=== PATIENT | female | born 1970 | race Hispanic/Latino ===

== ENCOUNTER 2017-03-09 17:03 | Emergency (ER) | payer MEDICAID, MEDICARE, OTHER ==
[2017-03-09 17:04] VITALS: BMI 49.4
[2017-03-09 17:10] VITALS: BP 121/70; PULSE 84; RESP 18; TEMP 98.4; O2SAT 97
[2017-03-09] MEDS ORDERED: Albuterol-Ipratrop 3 mg / 0.5 (3 ml) UD INH STA (17:50)
[2017-03-09] MEDS ORDERED: Albuterol-Ipratrop 3 mg / 0.5 (3 ml) UD ONE (18:04)
--- NOTE | 2017-03-09 18:43 | ED PDOC ---
HPI: CCC, URI, Sore Throat Time Seen by Provider: 03/09/17 17:41 Chief Complaint (Nursing): Cough, Cold, Congestion Chief Complaint (Provider): Cough History Per: Patient History/Exam Limitations: no limitations Have you had recent travel within the past 21 days to any of the following countries: [place], [place], [place] or [place]?: No Onset/Duration Of Symptoms: Days (x1) Current Symptoms Are (Timing): Still Present Sick Contacts (Context): None Associated Symptoms: Cough, Other (chest tightness, wheezing; no hemoptysis). denies: Fever Severity: Moderate Additional Complaint(s): Monica Resendiz is a 46 year old female, with a past medical history inclusive of asthma and bronchitis, who presents to the ED on 03/09/17 for the evaluation of a moderate cough that she has experienced x1 day. Some associated wheezing and chest tightness also reported, though she denies fever, hemoptysis, known sick contacts or recent travel. Has medicated with her usual ventolin inhaler without relief. PMD: Han Friedman Past Medical History Reviewed: Historical Data, Nursing Documentation, Vital Signs Vital Signs: Last Vital Signs Temp 98.4 F 03/09/17 17:05 Pulse 84 03/09/17 17:05 Resp 18 03/09/17 17:05 BP 121/70 03/09/17 17:05 Pulse Ox 97 03/09/17 18:45 - Medical History PMH: Anxiety, Asthma, Bronchitis, Depression, Gastritis - Surgical History Surgical History: Endoscopy, Hernia Repair (ventral and inguinal x2), (x3) Other surgeries: tubal ligation - Family History Family History: States: Unknown Family Hx - Home Medications Home Medications: Ambulatory Orders Medication Instructions Recorded Albuterol Sulfate [Proair Hfa] 0.09 mg IH DAILY 10/21/15 Brimonidine 0.2% [Alphagan 0.2% 1 drop BOTHEYES DAILY 10/21/15 Opht] Escitalopram [Lexapro] 20 mg PO DAILY 10/21/15 Fluticasone/Salmeterol 250/50 1 dsk IH DAILY 10/21/15 [Advair Diskus] Loratadine 10 mg PO DAILY 10/21/15 Multivit,Iron,Min 5/Folic Acid 1 tab PO DAILY 10/21/15 [Strovite Forte] Naproxen 500 mg PO DAILY PRN 10/21/15 Ciprofloxacin Hydrochloride 3 drop .ROUTE BID #5 ml 11/17/15 [Ciprofloxacin 5 ml] hydrOXYzine HCl [Atarax] 25 mg PO HS 12/09/15 Cephalexin [Keflex] 500 mg PO TID #21 tab 01/25/16 traMADol [Ultram] 50 mg PO TID PRN #12 tab 01/25/16 Azithromycin [Zithromax Z-Jefe] 250 mg PO DAILY #1 packet 05/15/16 Fluticasone Nasal [Flonase] 1 spray NS DAILY #0 spr 05/15/16 Ibuprofen [Motrin] 600 mg PO Q6 PRN #15 tab 05/15/16 Tramadol HCl [Ultram] 50 mg PO Q6 #15 tab 05/16/16 Albuterol 0.083% [Albuterol 0.083% 3 ml IH Q4 PRN #50 neb 03/09/17 Inhal Dominique (2.5 mg/3 ml) UD] Benzonatate [Tessalon Perle] 100 mg PO Q8 PRN #30 capsule 03/09/17 Methylprednisolone [Medrol Dose 4 mg PO DAILY #21 mg 03/09/17 Pack (21 tabs)] Nebulizer [Aeroeclipse] 1 each MC Q4 PRN #1 each 03/09/17 - Allergies Allergies/Adverse Reactions: Allergies Allergy/AdvReac Type Severity Reaction Status Date / Time iodine Allergy RASH Verified 08/02/16 11:46 shellfish derived Allergy RASH Verified 08/02/16 11:46 Review of Systems Constitutional: Negative for: Fever Respiratory: Positive for: Cough, Wheezing, Other (chest tightness). Negative for: Hemoptysis Physical Exam - Reviewed Nursing Documentation Reviewed: Yes Vital Signs Reviewed: Yes - Physical Exam Appears: Positive for: Non-toxic, No Acute Distress Head Exam: Positive for: ATRAUMATIC, NORMOCEPHALIC Skin: Positive for: Normal Color, Warm, Dry Eye Exam: Positive for: Normal appearance, PERRL ENT: Positive for: Normal ENT Inspection. Negative for: Pharyngeal Erythema, Tonsillar Exudate, Tonsillar Swelling Cardiovascular/Chest: Positive for: Regular Rate, Rhythm. Negative for: Murmur Respiratory: Positive for: Wheezing (b/l expiratory). Negative for: Rales, Rhonchi, Respiratory Distress Gastrointestinal/Abdominal: Positive for: Normal Exam, Soft. Negative for: Tenderness Back: Positive for: Normal Inspection Extremity: Positive for: Normal ROM. Negative for: Swelling Neurologic/Psych: Positive for: Alert, Oriented - ECG O2 Sat by Pulse Oximetry: 97 (RA) Pulse Ox Interpretation: Normal Medical Decision Making Medical Decision Makin:41 Initial Impression: cough, wheezing, chest tightness in the setting of known asthma/previous bronchitis Initial Plan: * CXR (PA/LAT) * Prednisone 60mg PO * Duonebs 9ml INH * Peak Flow Pre/Post Treatment * Reevaluation Scribe Attestation: Documented by Floridalma Howe, acting as a scribe for Ibrahima Olivier Provider Scribe Attestation: All medical record entries made by the Scribe were at my direction and personally dictated by me. I have reviewed the chart and agree that the record accurately reflects my personal performance of the history, physical exam, medical decision making, and the department course for this patient. I have also personally directed, reviewed, and agree with the discharge instructions and disposition. Disposition - Clinical Impression Clinical Impression: Acute bronchitis - Patient ED Disposition Is Patient to be Admitted: No - Disposition Disposition: Routine/Home Disposition Time: 19:55 Condition: STABLE Prescriptions: Albuterol 0.083% [Albuterol 0.083% Inhal Dominique (2.5 mg/3 ml) UD] 3 ml IH Q4 PRN # 50 neb PRN Reason: Wheezing Benzonatate [Tessalon Perle] 100 mg PO Q8 PRN #30 capsule PRN Reason: Cough Methylprednisolone [Medrol Dose Pack (21 tabs)] 4 mg PO DAILY #21 mg Nebulizer [Aeroeclipse] 1 each MC Q4 PRN #1 each PRN Reason: Wheezing Instructions: Acute Bronchitis (ED)
--- NOTE | 2017-03-10 06:43 | RAD ---
HISTORY: cough COMPARISON: No prior. TECHNIQUE: Chest PA and lateral FINDINGS: LUNGS: No active pulmonary disease. PLEURA: No significant pleural effusion identified. No pneumothorax apparent. CARDIOVASCULAR: Normal. OSSEOUS STRUCTURES: No significant abnormalities. VISUALIZED UPPER ABDOMEN: Normal. OTHER FINDINGS: None. IMPRESSION: No active disease.
== END 2017-03-09 20:00 | disposition home or self-care (01) ==
LOC: H.ER 17:03
DX: J20.9 Acute bronchitis, unspecified (principal); R05 Cough; R07.89 Other chest pain; J45.909 Unspecified asthma, uncomplicated; J02.9 Acute pharyngitis, unspecified; F41.9 Anxiety disorder, unspecified; F32.9 Major depressive disorder, single episode, unspecified

== ENCOUNTER 2017-03-18 19:02 | Emergency (ER) | payer MEDICAID ==
[2017-03-18 19:02] VITALS: BMI 49.4
[2017-03-18 19:07] VITALS: BP 99/51; PULSE 72; RESP 20; TEMP 98.3; O2SAT 98
--- NOTE | 2017-03-18 19:50 | ED PDOC ---
HPI: Abdomen Time Seen by Provider: 03/18/17 19:14 Chief Complaint (Nursing): Abdominal Pain Additional History Per: Patient Additional Complaint(s): 46F p/w RIGHT flank pain, sharp, non-radiating, constant since today, but started yesterday evening. She reports pain worse when lying on right side, otherwise no alleviating factors -ve: fever, nausea, cough, SOB, chest pain, palpitations, vomiting, diarrhea, constipation, urinary frequency/burning, vaginal discharge, difficulty walking +ve: "cold" last week, chills PMD: Han Friedman PMH: Bronchitis, Depression, Glaucoma, Overactive Bladder PSH: Ventral Hernia Repair Smoke: Yes etOH: Occasional Drugs: Denies Allergies: Shellfish (Anaphylaxis), Topical Iodine (Rash) LMP: 01/30/2017 Abnormal Vaginal Bleeding: No Last Menstral Period: 01/30/2017 Past Medical History Vital Signs: Last Vital Signs Temp 36.8 C 03/18/17 19:04 Pulse 72 03/18/17 19:04 Resp 20 03/18/17 19:04 BP 99/51 L 03/18/17 19:04 Pulse Ox 98 03/18/17 23:58 - Medical History PMH: Anxiety, Asthma, Bronchitis, Depression, Gastritis - Surgical History Surgical History: Endoscopy, Hernia Repair (ventral and inguinal x2), (x3) - Family History Family History: States: Unknown Family Hx - Home Medications Home Medications: Ambulatory Orders Medication Instructions Recorded Albuterol Sulfate [Proair Hfa] 0.09 mg IH DAILY 10/21/15 Brimonidine 0.2% [Alphagan 0.2% 1 drop BOTHEYES DAILY 10/21/15 Opht] Escitalopram [Lexapro] 20 mg PO DAILY 10/21/15 Fluticasone/Salmeterol 250/50 1 dsk IH DAILY 10/21/15 [Advair Diskus] Loratadine 10 mg PO DAILY 10/21/15 Multivit,Iron,Min 5/Folic Acid 1 tab PO DAILY 10/21/15 [Strovite Forte] Naproxen 500 mg PO DAILY PRN 10/21/15 Ciprofloxacin Hydrochloride 3 drop .ROUTE BID #5 ml 11/17/15 [Ciprofloxacin 5 ml] hydrOXYzine HCl [Atarax] 25 mg PO HS 12/09/15 Cephalexin [Keflex] 500 mg PO TID #21 tab 01/25/16 traMADol [Ultram] 50 mg PO TID PRN #12 tab 01/25/16 Azithromycin [Zithromax Z-Jefe] 250 mg PO DAILY #1 packet 05/15/16 Fluticasone Nasal [Flonase] 1 spray NS DAILY #0 spr 05/15/16 Ibuprofen [Motrin] 600 mg PO Q6 PRN #15 tab 05/15/16 Tramadol HCl [Ultram] 50 mg PO Q6 #15 tab 05/16/16 Albuterol 0.083% [Albuterol 0.083% 3 ml IH Q4 PRN #50 neb 03/09/17 Inhal Dominique (2.5 mg/3 ml) UD] Benzonatate [Tessalon Perle] 100 mg PO Q8 PRN #30 capsule 03/09/17 Methylprednisolone [Medrol Dose 4 mg PO DAILY #21 mg 03/09/17 Pack (21 tabs)] Nebulizer [Aeroeclipse] 1 each MC Q4 PRN #1 each 03/09/17 - Allergies Allergies/Adverse Reactions: Allergies Allergy/AdvReac Type Severity Reaction Status Date / Time iodine Allergy RASH Verified 03/18/17 19:04 shellfish derived Allergy RASH Verified 03/18/17 19:04 Review of Systems ROS Statement: Except As Marked, All Systems Reviewed And Found Negative Constitutional: Positive for: Chills Physical Exam - Physical Exam Appears: Positive for: Well, Non-toxic, No Acute Distress Head Exam: Positive for: ATRAUMATIC, NORMAL INSPECTION (Thinning hair) Eye Exam: Positive for: EOMI, PERRL ENT: Positive for: Pharynx Is (Clear) Neck: Positive for: Supple Cardiovascular/Chest: Positive for: Regular Rate, Rhythm, Chest Non Tender. Negative for: JVD Respiratory: Positive for: Normal Breath Sounds. Negative for: Crackles, Rales , Rhonchi, Wheezing, Respiratory Distress Gastrointestinal/Abdominal: Positive for: Bowel Sounds, Soft (Obese), Tenderness (along RIGHT rib border ). Negative for: Guarding, Rebound Back: Negative for: L CVA Tenderness, R CVA Tenderness Neurologic/Psych: Positive for: Alert - Laboratory Results Result Diagrams: 03/18/17 20:00 03/18/17 20:00 Interpretation Of Abn Labs: Potassium: 5.2 due to hemolysis, BUN slightly elevated may be secondary to home medications vs. minimal volume depletion Urine POC: Negative Urine dip results: Negative for: Leukocyte Esterase, Blood, Nitrate - ECG O2 Sat by Pulse Oximetry: 98 Medical Decision Making Medical Decision MakinF with RIGHT flank/rib/UQ pain, will evaluate for biliary etiology vs. UTI vs. MSK - CXR - CBC, CMP, Lipase, Urine Dip, Urine Preg - GB Ultrasound Upreg: Negative Urine Dip: WNL 2000 CBC: no anemia or leukocytosis CMP: hemolyzed sample, trace elevation AST and BUN Lipase: WNL CXR 2-view Unchanged when compared to 03/09/17 Ultrasound NO acute GB/Liver findings Disposition - Clinical Impression Clinical Impression: Costochondritis - Patient ED Disposition Is Patient to be Admitted: No Counseled Patient/Family Regarding: Studies Performed, Diagnosis - Disposition Referrals: Han Friedman MD [Family Provider] - Disposition: Routine/Home Disposition Time: 00:03 Condition: GOOD
[2017-03-18 20:07] LABS: BASO % 0.4 % (0.0-2.0); EOS # 0.1 K/uL (0.0-0.7); EOS % 1.1 % (0.0-4.0); LYMPH # 3.5 K/uL (1.0-4.3); LYMPH % 35.9 % (20.0-40.0); MEAN CELL VOLUME 78.7 fl (81.0-99.0); MEAN CORPUSCULAR HEMOGLOBIN 25.4 pg (27.0-31.0); MEAN CORPUSCULAR HGB CONC 32.3 g/dL (33.0-37.0); MEAN PLATELET VOLUME 7.7 fl (7.2-11.7); MONO # 0.6 K/uL (0.0-0.8); MONO % 6.5 % (0.0-10.0); NEUT # 5.4 K/uL (1.8-7.0); NEUT % 56.1 % (50.0-75.0); NRBC % 0.1 % (0.0-0.0); RED CELL DISTRIBUTION WIDTH 15.9 % (11.5-14.5); WHITE BLOOD COUNT 9.6 K/uL (4.8-10.8)
[2017-03-18 20:08] LABS: RBC URINE 2 /hpf (0-3); URINE BACTERIA RARE (<OCC); URINE BILIRUBIN NEGATIVE (NEGATIVE); URINE BLOOD SMALL (NEGATIVE); URINE COLOR YELLOW (YELLOW); URINE GLUCOSE (UA) NEG (Normal); URINE KETONE NEGATIVE (NEGATIVE); URINE LEUKOCYTE ESTERASE NEG Leu/uL (Negative); URINE PROTEIN NEGATIVE (NEGATIVE); URINE UROBILINOGEN 0.2-1.0 mg/dL (0.2-1.0); WBC URINE 1 /hpf (0-5)
[2017-03-18 20:13] LABS: ALKALINE PHOSPHATASE 84 U/L (38-126); ALT/SGPT 32 U/L (9-52); AST/SGOT 39 U/L (14-36); BILIRUBIN,TOTAL 0.8 mg/dl (0.2-1.3); BLOOD UREA NITROGEN 22 mg/dl (7-17); CALCIUM 9.6 mg/dL (8.4-10.2); CARBON DIOXIDE 27 mmol/L (22-30); CHLORIDE 101 mmol/L (98-107); GFR AFRICAN-AMERICAN > 60; GLUCOSE,RANDOM 99 mg/dL (65-105); LIPASE 163 U/L (23-300); SODIUM 138 mmol/l (132-148); TOTAL PROTEIN 7.7 G/DL (6.3-8.2)
[2017-03-18 20:14] LABS: POTASSIUM 5.2 MMOL/L (3.6-5.0)
--- NOTE | 2017-03-18 23:39 | US ---
EXAM: US Abdomen Limited, Right Upper Quadrant CLINICAL HISTORY: 46 years old, female; Pain; Abdominal pain; Colic; Patient HX: Hernia surg middle abd last yr; Additional info: Ruq TECHNIQUE: Real-time ultrasound of the right upper quadrant with image documentation. COMPARISON: No relevant prior studies available. FINDINGS: Liver: Normal echogenicity. No mass. No intrahepatic bile duct dilatation. Gallbladder: Contracted. No gallstones. No wall thickening. No pericholecystic fluid. No sonographic Parekh's sign. Common bile duct: No dilatation. No stones. Pancreas: Unremarkable as visualized. Right kidney: Normal echogenicity. No hydronephrosis. IMPRESSION: 1.No acute findings. 2.Non-acute findings are described above.
--- NOTE | 2017-03-19 10:22 | RAD ---
HISTORY: RUQ Pain COMPARISON: Chest x-ray performed 03/09/17 TECHNIQUE: Chest PA and lateral FINDINGS: Examination limited by habitus. LUNGS: No focal consolidation. Please note that chest x-ray has limited sensitivity for the detection of pulmonary masses. PLEURA: No significant pleural effusion identified. No definite pneumothorax . CARDIOVASCULAR: Heart size appears within normal limits. OSSEOUS STRUCTURES: Degenerative changes of the spine. VISUALIZED UPPER ABDOMEN: Unremarkable. OTHER FINDINGS: None. IMPRESSION: No focal consolidation, significant pleural effusion, or definite pneumothorax identified.
== END 2017-03-19 00:15 | disposition home or self-care (01) ==
LOC: H.ER 19:02
DX: R10.11 Right upper quadrant pain (principal); M94.0 Chondrocostal junction syndrome [Tietze]; F41.9 Anxiety disorder, unspecified; J45.909 Unspecified asthma, uncomplicated; N32.81 Overactive bladder; F32.9 Major depressive disorder, single episode, unspecified

== ENCOUNTER 2017-04-22 14:35 | Inpatient (IN) | payer MEDICAID, MEDICARE, OTHER ==
[2017-04-22 14:35] VITALS: BMI 49.4
[2017-04-22] MEDS ORDERED: Barium Sulfate Susp 2.1% w/v, 2.0% w/w 450 mL Bottle PO ONE ×3 (15:15)
[2017-04-22] MEDS ORDERED: Sodium Chloride 0.9% 1,000 ML IV STA (15:17)
--- NOTE | 2017-04-22 15:37 | ED PDOC ---
HPI: Abdomen Time Seen by Provider: 04/22/17 15:08 Chief Complaint (Nursing): Abdominal Pain Chief Complaint (Provider): Abdominal pain History Per: Patient History/Exam Limitations: no limitations Onset/Duration Of Symptoms: Days (1) Outside of [place] travel?: No Current Symptoms Are (Timing): Still Present Severity: Moderate Location Of Pain/Discomfort: Epigastric Quality Of Discomfort: "Pain" Associated Symptoms: Chills, Nausea. denies: Fever, Vomiting Additional History Per: Patient Additional Complaint(s): The pt is a 46yo female, PMHx of 4x hernias, 3x , depression, asthma, obesity, presents to the ED for evaluation of mid-upper abdominal pain starting since 8AM yesterday. Pt reports the pain has been constant, waxing and waning but was worse today, prompting her visit. Pt reports she was able to eat today. She reports taking Tylenol with no relief. Pt reports associated chills and nausea. She denies any fever, vomiting, diarrhea, constipation, black or bloody stool, and urinary symptoms. Pt reports she is concerned her symptoms indicate another hernia. At present, pt offers no other medical complaints. PCP: Dr. Han Friedman Past Medical History Reviewed: Historical Data, Nursing Documentation, Vital Signs Vital Signs: Last Vital Signs Temp 98 F 04/22/17 21:42 Pulse 79 04/22/17 21:42 Resp 19 04/22/17 21:42 BP 126/76 04/22/17 21:42 Pulse Ox 100 04/22/17 21:42 - Medical History PMH: Anxiety, Asthma, Bronchitis, Depression, Gastritis - Surgical History Surgical History: Endoscopy, Hernia Repair (ventral and inguinal x2), (x3) - Family History Family History: States: Unknown Family Hx, Hypertension - Social History Current smoker - smoking cessation education provided: Yes - Home Medications Home Medications: Ambulatory Orders Medication Instructions Recorded Loratadine 10 mg PO DAILY 10/21/15 hydrOXYzine HCl [Atarax] 25 mg PO HS 12/09/15 Escitalopram [Lexapro] 1 tab PO DAILY 04/22/17 - Allergies Allergies/Adverse Reactions: Allergies Allergy/AdvReac Type Severity Reaction Status Date / Time iodine Allergy RASH Verified 04/22/17 14:38 shellfish derived Allergy RASH Verified 04/22/17 14:38 Review of Systems ROS Statement: Except As Marked, All Systems Reviewed And Found Negative Constitutional: Positive for: Chills. Negative for: Fever Gastrointestinal: Positive for: Nausea, Abdominal Pain. Negative for: Vomiting , Diarrhea, Constipation, Melena, Hematochezia Genitourinary Female: Negative for: Dysuria Physical Exam - Reviewed Nursing Documentation Reviewed: Yes Vital Signs Reviewed: Yes - Physical Exam Appears: Positive for: Well, Non-toxic, No Acute Distress Head Exam: Positive for: ATRAUMATIC, NORMAL INSPECTION, NORMOCEPHALIC Skin: Positive for: Normal Color, Warm Neck: Positive for: Normal, Supple Cardiovascular/Chest: Positive for: Regular Rate, Rhythm Respiratory: Negative for: Respiratory Distress Gastrointestinal/Abdominal: Positive for: Soft, Tenderness (epigastric, left upper quadrant and left lower quadrant tenderness noted; (-) McBurney's point tenderness (-) Parekh's sign), Other (Abdomen is obese and protuberant). Negative for: Mass, Guarding, Rebound Neurologic/Psych: Positive for: Alert, Oriented - Laboratory Results Result Diagrams: 04/22/17 15:49 04/22/17 15:49 - ECG O2 Sat by Pulse Oximetry: 100 (RA) Pulse Ox Interpretation: Normal Medical Decision Making Medical Decision Making: Time: 1520 Impression: Abdominal pain Differential: Hernia, gastritis, pancreatitis, colitis Plan: * CT AP w/ PO contrast * Bloodwork * IV Fluids * Pepcid 40 mg IVP * Toradol 30 mg IV * Zofran 8 mg IV Scribe Attestation: Documented by Jacque Holguin acting as a scribe for Estephania Lopez MD. Provider Attestation: All medical record entries made by the Scribe were at my direction and personally dictated by me. I have reviewed the chart and agree that the record accurately reflects my personal performance of the history, physical exam, medical decision making, and the department course for this patient. I have also personally directed, reviewed, and agree with the discharge instructions and disposition. ED OBSERVATION Time of observation admission: 15:15 - Observation admission statement Patient is being placed in observation because:: Time intensive workup and serial exams - Goals of Observation Goals of observation are:: Complete diagnostics and initiate definitive care. - Progress Note Progress Note: 17:00 Pt's labs unremarable. Pending CT. Pt's pain controlled at this time. 04/22/17 18:53 EXAM: CT Abdomen and Pelvis With Intravenous Contrast CLINICAL HISTORY: 46 years old, female; Pain; Abdominal pain; Other: Upper mid and left side; Additional info: Abd pain h/o multiple surgeries TECHNIQUE: Axial computed tomography images of the abdomen and pelvis with intravenous contrast. This CT exam was performed using one or more of the following dose reduction techniques : automated exposure control, adjustment of the mA and/or kV according to patient size, and/ or use of iterative reconstruction technique. CONTRAST: 50 mL of [id number] administered intravenously. COMPARISON: US - ABDOMEN LIMITED (GB INCLUDED) 03/18/2017 11:01:30 PM FINDINGS: Lower thorax: No acute findings. ABDOMEN: Liver: Unremarkable. No mass. Gallbladder and bile ducts: Unremarkable. No calcified stones. No ductal dilation. Pancreas: Unremarkable. No mass. No ductal dilation. Spleen: Unremarkable. No splenomegaly. Adrenals: Unremarkable. No mass. Kidneys and ureters: Unremarkable. No solid mass. No hydronephrosis. Stomach and bowel: There is a 7.1 x 2.8 x 11.0 cm thick walled air containing fluid collection immediately deep to the anterior abdominal wall in the supraumbilical region. There is no evidence of communication with large or small bowel. There are multiple loops of small bowel abutting the collection, however the large and small bowel are unremarkable Appendix: No findings to suggest acute appendicitis. PELVIS: Bladder: Unremarkable. No mass. Reproductive: Unremarkable as visualized. ABDOMEN and PELVIS: Intraperitoneal space: Unremarkable. No free air. No significant fluid collection. Bones/joints: No acute fracture. No dislocation. Soft tissues: See above. Vasculature: Unremarkable. No abdominal aortic aneurysm. Lymph nodes: Unremarkable. No enlarged lymph nodes. IMPRESSION: Anterior abdominal wall thick wall collection containing air suspicious for abscess. No fistula with intestine was demonstrated. Thank you for allowing us to participate in the care of your patient. Dictated and Authenticated by: Monica Cornejo MD 04/22/2017 6:43 PM Eastern Time ([place] & [place]) 830p Unable to reach Dr Hameed pt's surgeon. [facility] and Dr Roy Hospitalist for admission. Disposition - Clinical Impression Clinical Impression: Abdominal abscess - Disposition Disposition Time: 15:15 Condition: GUARDED - Pt Status Changed To: Hospital Disposition Of: Inpatient - Admit Certification Admit to Inpatient:: After my assessment, the patient will require hospitalization for at least two midnights. This is because of the severity of symptoms shown, intensity of services needed, and/or the medical risk in this patient being treated as an outpatient. - POA Present On Arrival: None
[2017-04-22 16:02] LABS: BASO % 0.4 % (0.0-2.0); EOS # 0.1 K/uL (0.0-0.7); EOS % 1.1 % (0.0-4.0); HEMATOCRIT 38.1 % (34.0-47.0); LYMPH # 1.9 K/uL (1.0-4.3); LYMPH % 17.7 % (20.0-40.0); MEAN CELL VOLUME 79.2 fl (81.0-99.0); MEAN CORPUSCULAR HEMOGLOBIN 25.7 pg (27.0-31.0); MEAN CORPUSCULAR HGB CONC 32.4 g/dL (33.0-37.0); MEAN PLATELET VOLUME 8.7 fl (7.2-11.7); MONO # 0.9 K/uL (0.0-0.8); MONO % 8.6 % (0.0-10.0); NEUT # 7.8 K/uL (1.8-7.0); NEUT % 72.2 % (50.0-75.0); RED CELL DISTRIBUTION WIDTH 14.8 % (11.5-14.5); WHITE BLOOD COUNT 10.8 K/uL (4.8-10.8)
[2017-04-22 16:14] LABS: ALB/GLOB RATIO 1.2 (1.0-2.1); ALCOHOL SERUM < 10 mg/dl (0-10); ALKALINE PHOSPHATASE 81 U/L (38-126); ALT/SGPT 30 U/L (9-52); AST/SGOT 27 U/L (14-36); BILIRUBIN,TOTAL 0.2 mg/dl (0.2-1.3); BLOOD UREA NITROGEN 17 mg/dl (7-17); CALCIUM 9.3 mg/dL (8.4-10.2); CARBON DIOXIDE 27 mmol/L (22-30); CHLORIDE 101 mmol/L (98-107); GFR AFRICAN-AMERICAN > 60; GLUCOSE,RANDOM 104 mg/dL (65-105); LIPASE 81 U/L (23-300); POTASSIUM 3.8 MMOL/L (3.6-5.0); SODIUM 142 mmol/l (132-148); TOTAL PROTEIN 7.8 G/DL (6.3-8.2)
[2017-04-22 16:34] LABS: PARTIAL THROMBOPLASTIN TIME 46.1 Seconds (25.6-37.1)
--- NOTE | 2017-04-22 20:57 | CP.PCM.HP ---
History of Present Illness - History of Present Illness History of Present Illness: CC: Abd pain HPI: This is a 46 y/o female with MHx significant for asthma and for multiple hernia surgeries with implanted mesh (done at [facility]). She comes in with worsening abd pain since yesterday AM. Pain is localized to L abdomen it appears. It is waxing/waning. Nothing seems to make it better or worse. Patient not able to eat much today. No f, but some chills. No v/d. No dysuria. ROS: 14 systems reviewed, negative other than HPI MHx: Asthma SHx: Hernia repair (ventral and inguinal x 2 each) with mesh, C-sec x 3, tubal ligation Allergies: iodinated dyes Medications: As per med rec Family Hx: reviewed, no relevant findings Social Hx: Lives with family, no significant EtOH, no tobacco Present on Admission - Present on Admission Any Indicators Present on Admission: No Past Patient History - Past Medical History & Family History Past Medical History?: Yes - Past Social History Smoking Status: Light Smoker < 10 Cigarettes Daily - CARDIAC Hx Cardiac Disorders: No - PULMONARY Hx Asthma: Yes Hx Bronchitis: Yes - NEUROLOGICAL Hx Neurological Disorder: No - HEENT Hx HEENT Problems: Yes Hx Glaucoma: Yes - ENDOCRINE/METABOLIC Hx Endocrine Disorders: No - HEMATOLOGICAL/ONCOLOGICAL Hx Blood Disorders: No - INTEGUMENTARY Hx Dermatological Problems: No - MUSCULOSKELETAL/RHEUMATOLOGICAL Hx Musculoskeletal Disorders: No - GASTROINTESTINAL Hx Gastritis: Yes - GENITOURINARY/GYNECOLOGICAL Other/Comment: Hx overactive bladder - PSYCHIATRIC Hx Anxiety: Yes Hx Depression: Yes - SURGICAL HISTORY Hx Surgeries: Yes Hx Tubal Ligation: Yes - ANESTHESIA Hx Anesthesia: Yes Hx Anesthesia Reactions: No Meds Allergies/Adverse Reactions: Allergies Allergy/AdvReac Type Severity Reaction Status Date / Time iodine Allergy RASH Verified 04/22/17 14:38 shellfish derived Allergy RASH Verified 04/22/17 14:38 Physical Exam - Constitutional Appears: No Acute Distress - Head Exam Head Exam: ATRAUMATIC, NORMOCEPHALIC - Eye Exam Eye Exam: EOMI, PERRL - ENT Exam ENT Exam: Mucous Membranes Moist - Neck Exam Neck exam: Positive for: Full Rom - Respiratory Exam Respiratory Exam: Clear to Auscultation Bilateral, NORMAL BREATHING PATTERN - Cardiovascular Exam Cardiovascular Exam: REGULAR RHYTHM, +S1, +S2 - GI/Abdominal Exam GI & Abdominal Exam: Normal Bowel Sounds, Soft, Tenderness Additional comments: TTP localized mostly to L abdomen/LUQ. no rigidity, guarding, rebound - Extremities Exam Extremities exam: Positive for: full ROM, normal inspection - Neurological Exam Neurological exam: Alert, CN II-XII Intact, Oriented x3 - Psychiatric Exam Psychiatric exam: Normal Affect, Normal Mood - Skin Skin Exam: Dry, Warm Results - Vital Signs Recent Vital Signs: Last Vital Signs Temp 98.1 F 04/22/17 14:39 Pulse 101 H 04/22/17 14:39 Resp 18 04/22/17 14:39 BP 106/67 04/22/17 14:39 Pulse Ox 100 04/22/17 18:54 - Labs Result Diagrams: 04/22/17 15:49 04/22/17 15:49 Labs: Laboratory Results - last 24 hr 04/22/17 04/22/17 04/22/17 15:49 15:49 15:49 WBC 10.8 RBC 4.81 Hgb 12.3 Hct 38.1 MCV 79.2 L MCH 25.7 L MCHC 32.4 L RDW 14.8 H Plt Count 260 MPV 8.7 Neut % (Auto) 72.2 Lymph % (Auto) 17.7 L [place] % (Auto) 8.6 Eos % (Auto) 1.1 Baso % (Auto) 0.4 Neut # 7.8 H Lymph # 1.9 [place] # 0.9 H Eos # 0.1 Baso # 0.0 PT INR APTT Sodium 142 Potassium 3.8 Chloride 101 Carbon Dioxide 27 Anion Gap 17 BUN 17 Creatinine 0.7 Est GFR ( Amer) > 60 Est GFR (Non-Af Amer) > 60 Random Glucose 104 Lactic Acid 2.4 H Calcium 9.3 Total Bilirubin 0.2 AST 27 ALT 30 Alkaline Phosphatase 81 Lactate Dehydrogenase 469 Total Protein 7.8 Albumin 4.3 Globulin 3.5 Albumin/Globulin Ratio 1.2 Lipase 81 Urine Opiates Screen Urine Methadone Screen Ur Barbiturates Screen Ur Phencyclidine Scrn Ur Amphetamines Screen U Benzodiazepines Scrn U Oth Cocaine Metabols U Cannabinoids Screen Alcohol, Quantitative < 10 04/22/17 04/22/17 15:49 16:29 WBC RBC Hgb Hct MCV MCH MCHC RDW Plt Count MPV Neut % (Auto) Lymph % (Auto) [place] % (Auto) Eos % (Auto) Baso % (Auto) Neut # Lymph # Benson # Eos # Baso # PT 12.8 INR 1.1 APTT 46.1 H Sodium Potassium Chloride Carbon Dioxide Anion Gap BUN Creatinine Est GFR ( Amer) Est GFR (Non-Af Amer) Random Glucose Lactic Acid Calcium Total Bilirubin AST ALT Alkaline Phosphatase Lactate Dehydrogenase Total Protein Albumin Globulin Albumin/Globulin Ratio Lipase Urine Opiates Screen Negative Urine Methadone Screen Negative Ur Barbiturates Screen Negative Ur Phencyclidine Scrn Negative Ur Amphetamines Screen Negative U Benzodiazepines Scrn Negative U Oth Cocaine Metabols Negative U Cannabinoids Screen Negative Alcohol, Quantitative - Imaging and Cardiology CT scan - abdomen Status: Report reviewed by me (IMPRESSION:) Assessment & Plan (1) Abdominal abscess Assessment and Plan: 46 y/o female with multiple abd surgeries with implanted mesh who comes in with abdominal pain and likely abscess. 1) Abd abscess -NPO, IVF -Surgery consult (Hosea rausch aware) -- Will likely recommend IR drainage -Continue vanco and zosyn IV -Pain mgmt per pain scale 2) Asthma -- continue PRN duonebs and home inh 3) DVT PPx -- scds Status: Acute (2) DVT prophylaxis Status: Acute
[2017-04-22] MEDS ORDERED: Albuterol-Ipratrop 3 mg / 0.5 (3 ml) UD INH PRN (20:59)
[2017-04-22] MEDS ORDERED: Piperacillin/Tazobact 3.375 gm Inj IVPB ONE (21:38)
--- NOTE | 2017-04-22 21:44 | CP.PCM.CON ---
<Carlos Eduardo Chanel - Last Filed: 04/22/17 22:10> History of Present Illness - History of Present Illness History of Present Illness: SURGERY CONSULT NOTE FOR DR. JC 46F presents with supraumbilical abdominal pain that started yesterday. Patient states the pain is worse with palpation, and is not associated with PO intake. The pain is note associated with nausea/vomiting/fevers/chills. She states she had a ventral hernia repair with mesh in September in [facility] [place]. She states she has not had any problems with it till now. PMH: Asthma, Glaucoma, Depression PSH: Inguinal hernia repair 2002, Ventral hernia repair September 2016, C- section x 3 Social: admits to tobacco, denies alcohol and illicit drugs Allergies: Iodine, shellfish Past Patient History - Past Medical History & Family History Past Medical History?: Yes - Past Social History Smoking Status: Light Smoker < 10 Cigarettes Daily - CARDIAC Hx Cardiac Disorders: No - PULMONARY Hx Asthma: Yes Hx Bronchitis: Yes - NEUROLOGICAL Hx Neurological Disorder: No - HEENT Hx HEENT Problems: Yes Hx Glaucoma: Yes - ENDOCRINE/METABOLIC Hx Endocrine Disorders: No - HEMATOLOGICAL/ONCOLOGICAL Hx Blood Disorders: No - INTEGUMENTARY Hx Dermatological Problems: No - MUSCULOSKELETAL/RHEUMATOLOGICAL Hx Musculoskeletal Disorders: No - GASTROINTESTINAL Hx Gastritis: Yes - GENITOURINARY/GYNECOLOGICAL Other/Comment: Hx overactive bladder - PSYCHIATRIC Hx Anxiety: Yes Hx Depression: Yes - SURGICAL HISTORY Hx Surgeries: Yes Hx Tubal Ligation: Yes - ANESTHESIA Hx Anesthesia: Yes Hx Anesthesia Reactions: No Meds Allergies/Adverse Reactions: Allergies Allergy/AdvReac Type Severity Reaction Status Date / Time iodine Allergy RASH Verified 04/22/17 14:38 shellfish derived Allergy RASH Verified 04/22/17 14:38 - Medications Medications: Current Medications Albuterol/Ipratropium (Duoneb 3 Mg/0.5 Mg (3 Ml) Ud) 3 ml INH RQ6 PRN PRN Reason: Shortness of Breath Escitalopram Oxalate (Lexapro) 20 mg PO DAILY HUAN Dextrose/Sodium Chloride (Dextrose 5%-0.9% Ns 500 Ml) 1,000 mls @ 100 mls/hr IV .Q10H HUAN Vancomycin HCl 1 gm/ Sodium (Chloride) 250 mls @ 166.667 mls/hr IV STAT STA Stop: 04/22/17 22:11 Piperacillin Sod/Tazobactam (Sod 3.375 gm/ Sodium Chloride) 100 mls @ 100 mls/ hr IV STAT STA Stop: 04/22/17 21:41 Sodium Chloride (Sodium Chloride 0.9%) 1,000 mls @ 100 mls/hr IV .Q10H HUAN Stop: 04/23/17 16:59 Vancomycin HCl 1 gm/ Sodium (Chloride) 250 mls @ 166.667 mls/hr IVPB Q12 HUAN Piperacillin Sod/Tazobactam (Sod 3.375 gm/ Sodium Chloride) 100 mls @ 100 mls/ hr IVPB Q6 HUAN Morphine Sulfate (Morphine) 2 mg IVP Q4 PRN PRN Reason: Pain, moderate (4-7) Morphine Sulfate (Morphine) 1 mg IVP Q4 PRN PRN Reason: Pain, Mild (1-3) Ondansetron HCl (Zofran Inj) 4 mg IVP Q6 PRN PRN Reason: Nausea/Vomiting Fluticasone/Salmeterol (Advair Diskus 250/50) 1 puff IH DAILY HUAN Physical Exam - Constitutional Appears: Non-toxic, No Acute Distress - Head Exam Head Exam: ATRAUMATIC - Eye Exam Eye Exam: EOMI, PERRL - ENT Exam ENT Exam: Mucous Membranes Moist - Respiratory Exam Respiratory Exam: Clear to Auscultation Bilateral, NORMAL BREATHING PATTERN - Cardiovascular Exam Cardiovascular Exam: REGULAR RHYTHM, +S1, +S2 - GI/Abdominal Exam GI & Abdominal Exam: Soft, Tenderness. absent: Distended, Firm, Guarding, Rebound, Rigid Additional comments: midline abdominal surgical scar noted - Extremities Exam Extremities exam: Negative for: pedal edema, tenderness - Neurological Exam Neurological exam: Alert, Oriented x3 - Psychiatric Exam Psychiatric exam: Normal Affect, Normal Mood - Skin Skin Exam: Dry, Intact, Normal Color, Warm Results - Vital Signs Recent Vital Signs: Last Vital Signs Temp 98.1 F 04/22/17 14:39 Pulse 101 H 04/22/17 14:39 Resp 18 04/22/17 14:39 BP 106/67 04/22/17 14:39 Pulse Ox 100 04/22/17 21:01 - Labs Result Diagrams: 04/22/17 15:49 04/22/17 15:49 Labs: Laboratory Results - last 24 hr 04/22/17 04/22/1704/22/17 15:49 15:49 15:49 WBC 10.8 RBC 4.81 Hgb 12.3 Hct 38.1 MCV 79.2 L MCH 25.7 L MCHC 32.4 L RDW 14.8 H Plt Count 260 MPV 8.7 Neut % (Auto) 72.2 Lymph % (Auto) 17.7 L [place] % (Auto) 8.6 Eos % (Auto) 1.1 Baso % (Auto) 0.4 Neut # 7.8 H Lymph # 1.9 [place] # 0.9 H Eos # 0.1 Baso # 0.0 PT INR APTT Sodium 142 Potassium 3.8 Chloride 101 Carbon Dioxide 27 Anion Gap 17 BUN 17 Creatinine 0.7 Est GFR ( Amer) > 60 Est GFR (Non-Af Amer) > 60 Random Glucose 104 Lactic Acid 2.4 H Calcium 9.3 Total Bilirubin 0.2 AST 27 ALT 30 Alkaline Phosphatase 81 Lactate Dehydrogenase 469 Total Protein 7.8 Albumin 4.3 Globulin 3.5 Albumin/Globulin Ratio 1.2 Lipase 81 Urine Opiates Screen Urine Methadone Screen Ur Barbiturates Screen Ur Phencyclidine Scrn Ur Amphetamines Screen U Benzodiazepines Scrn U Oth Cocaine Metabols U Cannabinoids Screen Alcohol, Quantitative < 10 04/22/17 04/22/17 15:49 16:29 WBC RBC Hgb Hct MCV MCH MCHC RDW Plt Count MPV Neut % (Auto) Lymph % (Auto) [place] % (Auto) Eos % (Auto) Baso % (Auto) Neut # Lymph # [place] # Eos # Baso # PT 12.8 INR 1.1 APTT 46.1 H Sodium Potassium Chloride Carbon Dioxide Anion Gap BUN Creatinine Est GFR ( Amer) Est GFR (Non-Af Amer) Random Glucose Lactic Acid Calcium Total Bilirubin AST ALT Alkaline Phosphatase Lactate Dehydrogenase Total Protein Albumin Globulin Albumin/Globulin Ratio Lipase Urine Opiates Screen Negative Urine Methadone Screen Negative Ur Barbiturates Screen Negative Ur Phencyclidine Scrn Negative Ur Amphetamines Screen Negative U Benzodiazepines Scrn Negative U Oth Cocaine Metabols Negative U Cannabinoids Screen Negative Alcohol, Quantitative Assessment & Plan - Assessment and Plan (Free Text) Assessment: 46F with intra-abdominal abscess 2/2 infected mesh Plan: - NPO, pain control,Vanco/Zosyn - repeat AM CBC/CMP - Consult IR for abscess drainage - Recommend patient return to original surgeon at [facility] [place] for mesh removal Case and plan discussed with Dr. Hosea Chanel, PGY1 <Naeem Jc - Last Filed: 04/23/17 11:14> History of Present Illness - History of Present Illness History of Present Illness: Patient was seen and examined at the bedside. Agree with resident's note above Meds - Medications Medications: Current Medications Albuterol/Ipratropium (Duoneb 3 Mg/0.5 Mg (3 Ml) Ud) 3 ml INH RQ6 PRN PRN Reason: Shortness of Breath Escitalopram Oxalate (Lexapro) 20 mg PO DAILY [facility] Last Admin: 04/23/17 08:50 Dose: 20 mg Dextrose/Sodium Chloride (Dextrose 5%-0.9% Ns 500 Ml) 1,000 mls @ 100 mls/hr IV .Q10H HUAN Last Admin: 04/22/17 21:50 Dose: 100 mls/hr Sodium Chloride (Sodium Chloride 0.9%) 1,000 mls @ 100 mls/hr IV .Q10H HUAN Stop: 04/23/17 16:59 Last Admin: 04/23/17 09:05 Dose: 100 mls/hr Vancomycin HCl 1 gm/ Sodium (Chloride) 250 mls @ 166.667 mls/hr IVPB Q12 HUAN Last Admin: 04/23/17 09:04 Dose: 166.667 mls/hr Piperacillin Sod/Tazobactam (Sod 3.375 gm/ Sodium Chloride) 100 mls @ 100 mls/ hr IVPB Q6 HUAN Last Admin: 04/23/17 09:00 Dose: 100 mls/hr Morphine Sulfate (Morphine) 2 mg IVP Q4 PRN PRN Reason: Pain, moderate (4-7) Morphine Sulfate (Morphine) 1 mg IVP Q4 PRN PRN Reason: Pain, Mild (1-3) Ondansetron HCl (Zofran Inj) 4 mg IVP Q6 PRN PRN Reason: Nausea/Vomiting Fluticasone/Salmeterol (Advair Diskus 250/50) 1 puff IH DAILY [facility] Results - Vital Signs Recent Vital Signs: Last Vital Signs Temp 98.0 F 04/23/17 07:31 Pulse 60 04/23/17 07:31 Resp 20 04/23/17 07:31 BP 121/70 04/23/17 07:31 Pulse Ox 95 04/23/17 07:31 - Labs Result Diagrams: 04/23/17 06:30 04/23/17 06:30 Labs: Laboratory Results - last 24 hr 04/22/17 04/22/17 04/22/17 15:49 15:49 15:49 WBC 10.8 RBC 4.81 Hgb 12.3 Hct 38.1 MCV 79.2 L MCH 25.7 L MCHC 32.4 L RDW 14.8 H Plt Count 260 MPV 8.7 Neut % (Auto) 72.2 Lymph % (Auto) 17.7 L [place] % (Auto) 8.6 Eos % (Auto) 1.1 Baso % (Auto) 0.4 Neut # 7.8 H Lymph # 1.9 [place] # 0.9 H Eos # 0.1 Baso # 0.0 PT INR APTT Sodium 142 Potassium 3.8 Chloride 101 Carbon Dioxide 27 Anion Gap 17 BUN 17 Creatinine 0.7 Est GFR ( Amer) > 60 Est GFR (Non-Af Amer) > 60 Random Glucose 104 Lactic Acid 2.4 H Calcium 9.3 Total Bilirubin 0.2 AST 27 ALT 30 Alkaline Phosphatase 81 Lactate Dehydrogenase 469 Total Protein 7.8 Albumin 4.3 Globulin 3.5 Albumin/Globulin Ratio 1.2 Lipase 81 Urine Opiates Screen Urine Methadone Screen Ur Barbiturates Screen Ur Phencyclidine Scrn Ur Amphetamines Screen U Benzodiazepines Scrn U Oth Cocaine Metabols U Cannabinoids Screen Alcohol, Quantitative < 10 04/22/17 04/22/17 04/23/17 15:49 16:29 06:30 WBC RBC Hgb Hct MCV MCH MCHC RDW Plt Count MPV Neut % (Auto) Lymph % (Auto) [place] % (Auto) Eos % (Auto) Baso % (Auto) Neut # Lymph # [place] # Eos # Baso # PT 12.8 INR 1.1 APTT 46.1 H Sodium 143 Potassium 3.7 Chloride 106 Carbon Dioxide 28 Anion Gap 13 BUN 16 Creatinine 0.8 Est GFR ( Amer) > 60 Est GFR (Non-Af Amer) > 60 Random Glucose 93 Lactic Acid Calcium 8.4 Total Bilirubin 0.5 AST 22 ALT 32 Alkaline Phosphatase 73 Lactate Dehydrogenase Total Protein 6.6 Albumin 3.5 Globulin 3.1 Albumin/Globulin Ratio 1.1 Lipase Urine Opiates Screen Negative Urine Methadone Screen Negative Ur Barbiturates Screen Negative Ur Phencyclidine Scrn Negative Ur Amphetamines Screen Negative U Benzodiazepines Scrn Negative U Oth Cocaine Metabols Negative U Cannabinoids Screen Negative Alcohol, Quantitative 04/23/17 06:30 WBC 8.2 RBC 4.35 Hgb 11.2 L Hct 34.5 MCV 79.2 L MCH 25.8 L MCHC 32.5 L RDW 14.4 Plt Count 210 MPV 8.4 Neut % (Auto) 61.9 Lymph % (Auto) 25.1 [place] % (Auto) 11.5 H Eos % (Auto) 0.9 Baso % (Auto) 0.6 Neut # 5.0 Lymph # 2.0 [place] # 0.9 H Eos # 0.1 Baso # 0.1 PT INR APTT Sodium Potassium Chloride Carbon Dioxide Anion Gap BUN Creatinine Est GFR ( Amer) Est GFR (Non-Af Amer) Random Glucose Lactic Acid Calcium Total Bilirubin AST ALT Alkaline Phosphatase Lactate Dehydrogenase Total Protein Albumin Globulin Albumin/Globulin Ratio Lipase Urine Opiates Screen Urine Methadone Screen Ur Barbiturates Screen Ur Phencyclidine Scrn Ur Amphetamines Screen U Benzodiazepines Scrn U Oth Cocaine Metabols U Cannabinoids Screen Alcohol, Quantitative - Imaging and Cardiology CT scan - abdomen Status: Image reviewed by me, Report reviewed by me Assessment & Plan - Assessment and Plan (Free Text) Plan: - Keep NPO for IR drainage - Continue antibiotics - Pain control - Will follow
[2017-04-22] MEDS: Piperacillin/Tazobact 3.375 GM in Sodium Chloride 0.9% 100 ML IV STA ×2 (21:47→21:48)
[2017-04-22] MEDS ORDERED: Vancomycin 1 g Inj ONE (21:47)
[2017-04-22] MEDS: Piperacillin/Tazobact 3.375 GM in Sodium Chloride 0.9% 100 ML IVPB SCH (21:48)
[2017-04-22] MEDS: Sodium Chloride 0.9% 1,000 ML IV SCH (22:49)
[2017-04-23] MEDS: Piperacillin/Tazobact 3.375 GM in Sodium Chloride 0.9% 100 ML IVPB SCH ×4 (03:48→22:01)
[2017-04-23] MEDS: Lactated Ringer's 1,000 ML IV SCH ×2 (07:11→23:00)
[2017-04-23 07:23] LABS: BASO # 0.1 K/uL (0.0-0.2); BASO % 0.6 % (0.0-2.0); EOS # 0.1 K/uL (0.0-0.7); EOS % 0.9 % (0.0-4.0); HEMATOCRIT 34.5 % (34.0-47.0); LYMPH % 25.1 % (20.0-40.0); MEAN CELL VOLUME 79.2 fl (81.0-99.0); MEAN CORPUSCULAR HEMOGLOBIN 25.8 pg (27.0-31.0); MEAN CORPUSCULAR HGB CONC 32.5 g/dL (33.0-37.0); MEAN PLATELET VOLUME 8.4 fl (7.2-11.7); MONO # 0.9 K/uL (0.0-0.8); MONO % 11.5 % (0.0-10.0); NEUT % 61.9 % (50.0-75.0); NRBC % 0.1 % (0.0-0.0); RED CELL DISTRIBUTION WIDTH 14.4 % (11.5-14.5); WHITE BLOOD COUNT 8.2 K/uL (4.8-10.8)
--- NOTE | 2017-04-23 07:47 | CP.PCM.PN ---
<Saar White - Last Filed: 04/23/17 07:45> Subjective - Date & Time of Evaluation Date of Evaluation: 04/23/17 Time of Evaluation: 07:45 - Subjective Subjective: General Surgery - Dr. Jc Pt. S&EAugust SALDANA. Pt complains of mid abdominal pain but is controlled with meds. She is currently NPO for poss. procedure today. No N/V, F/C, SOB/Cp. Objective - Vital Signs/Intake and Output Vital Signs (last 24 hours): Temp Pulse Resp BP Pulse Ox 98.0 F 60 20 121/70 95 04/23/17 07:31 04/23/17 07:31 04/23/17 07:31 04/23/17 07:31 04/23/17 07:31 - Medications Medications: Current Medications Albuterol/Ipratropium (Duoneb 3 Mg/0.5 Mg (3 Ml) Ud) 3 ml INH RQ6 PRN PRN Reason: Shortness of Breath Escitalopram Oxalate (Lexapro) 20 mg PO DAILY [facility] Dextrose/Sodium Chloride (Dextrose 5%-0.9% Ns 500 Ml) 1,000 mls @ 100 mls/hr IV .Q10H [facility] Last Admin: 04/22/17 21:50 Dose: 100 mls/hr Sodium Chloride (Sodium Chloride 0.9%) 1,000 mls @ 100 mls/hr IV .Q10H [facility] Stop: 04/23/17 16:59 Last Admin: 04/22/17 22:49 Dose: 100 mls/hr Vancomycin HCl 1 gm/ Sodium (Chloride) 250 mls @ 166.667 mls/hr IVPB Q12 HUAN Last Admin: 04/22/17 22:48 Dose: 166.667 mls/hr Piperacillin Sod/Tazobactam (Sod 3.375 gm/ Sodium Chloride) 100 mls @ 100 mls/ hr IVPB Q6 [facility] Last Admin: 04/23/17 03:48 Dose: 100 mls/hr Morphine Sulfate (Morphine) 2 mg IVP Q4 PRN PRN Reason: Pain, moderate (4-7) Morphine Sulfate (Morphine) 1 mg IVP Q4 PRN PRN Reason: Pain, Mild (1-3) Ondansetron HCl (Zofran Inj) 4 mg IVP Q6 PRN PRN Reason: Nausea/Vomiting Fluticasone/Salmeterol (Advair Diskus 250/50) 1 puff IH DAILY HUAN - Labs Labs: 04/23/17 06:30 04/22/17 15:49 PT 12.8 Seconds (9.8-13.1) 04/22/17 15:49 INR 1.1 (0.9-1.2) 04/22/17 15:49 APTT 46.1 Seconds (25.6-37.1) H 04/22/17 15:49 - Constitutional Appears: No Acute Distress - Head Exam Head Exam: ATRAUMATIC, NORMAL INSPECTION, NORMOCEPHALIC - Eye Exam Eye Exam: EOMI, Normal appearance - Respiratory Exam Respiratory Exam: NORMAL BREATHING PATTERN. absent: Respiratory Distress - Cardiovascular Exam Cardiovascular Exam: REGULAR RHYTHM - GI/Abdominal Exam GI & Abdominal Exam: Firm, Soft, Tenderness (superior portion of surgical scar in epigastric region). absent: Distended, Guarding, Rigid, Rebound - Neurological Exam Neurological Exam: Alert, Oriented x3 - Psychiatric Exam Psychiatric exam: Normal Affect, Normal Mood - Skin Skin Exam: Dry, Intact Assessment and Plan - Assessment and Plan (Free Text) Assessment: 46F with intra-abdominal abscess d/t infected mesh s/p hernia repair in Sep 2016 Plan: - NPO, IVF - IV Abx - Zosyn and Vanco - Pain control - IR Drainage of abscess - Pt to see original surgeon at [facility] [place] for mesh removal DW Dr Hosea White PGY2 <Naeem Jc - Last Filed: 04/23/17 11:17> Subjective - Date & Time of Evaluation Time of Evaluation: 11:00 - Subjective Subjective: Patient was seen and examined at the bedside. Agree with resident's note Objective - Vital Signs/Intake and Output Vital Signs (last 24 hours): Temp Pulse Resp BP Pulse Ox 98.0 F 60 20 121/70 95 04/23/17 07:31 04/23/17 07:31 04/23/17 07:31 04/23/17 07:31 04/23/17 07:31 - Medications Medications: Current Medications Albuterol/Ipratropium (Duoneb 3 Mg/0.5 Mg (3 Ml) Ud) 3 ml INH RQ6 PRN PRN Reason: Shortness of Breath Escitalopram Oxalate (Lexapro) 20 mg PO DAILY [facility] Last Admin: 04/23/17 08:50 Dose: 20 mg Dextrose/Sodium Chloride (Dextrose 5%-0.9% Ns 500 Ml) 1,000 mls @ 100 mls/hr IV .Q10H [facility] Last Admin: 04/22/17 21:50 Dose: 100 mls/hr Sodium Chloride (Sodium Chloride 0.9%) 1,000 mls @ 100 mls/hr IV .Q10H [facility] Stop: 04/23/17 16:59 Last Admin: 04/23/17 09:05 Dose: 100 mls/hr Vancomycin HCl 1 gm/ Sodium (Chloride) 250 mls @ 166.667 mls/hr IVPB Q12 [facility] Last Admin: 04/23/17 09:04 Dose: 166.667 mls/hr Piperacillin Sod/Tazobactam (Sod 3.375 gm/ Sodium Chloride) 100 mls @ 100 mls/ hr IVPB Q6 [facility] Last Admin: 04/23/17 09:00 Dose: 100 mls/hr Morphine Sulfate (Morphine) 2 mg IVP Q4 PRN PRN Reason: Pain, moderate (4-7) Morphine Sulfate (Morphine) 1 mg IVP Q4 PRN PRN Reason: Pain, Mild (1-3) Ondansetron HCl (Zofran Inj) 4 mg IVP Q6 PRN PRN Reason: Nausea/Vomiting Fluticasone/Salmeterol (Advair Diskus 250/50) 1 puff IH DAILY [facility] - Labs Labs: 04/23/17 06:30 04/23/17 06:30 PT 12.8 Seconds (9.8-13.1) 04/22/17 15:49 INR 1.1 (0.9-1.2) 04/22/17 15:49 APTT 46.1 Seconds (25.6-37.1) H 04/22/17 15:49
[2017-04-23 07:54] LABS: ALB/GLOB RATIO 1.1 (1.0-2.1); ALKALINE PHOSPHATASE 73 U/L (38-126); ALT/SGPT 32 U/L (9-52); AST/SGOT 22 U/L (14-36); BILIRUBIN,TOTAL 0.5 mg/dl (0.2-1.3); BLOOD UREA NITROGEN 16 mg/dl (7-17); CALCIUM 8.4 mg/dL (8.4-10.2); CARBON DIOXIDE 28 mmol/L (22-30); CHLORIDE 106 mmol/L (98-107); GFR AFRICAN-AMERICAN > 60; GLUCOSE,RANDOM 93 mg/dL (65-105); POTASSIUM 3.7 MMOL/L (3.6-5.0); SODIUM 143 mmol/l (132-148); TOTAL PROTEIN 6.6 G/DL (6.3-8.2)
[2017-04-23] MEDS ORDERED: Fluticasone-Salmeterol 250-50mcg Diskus IH SCH (09:00)
[2017-04-23] MEDS: Sodium Chloride 0.9% 1,000 ML IV SCH (09:05)
--- NOTE | 2017-04-23 10:21 | CT ---
PROCEDURE: CT Abdomen and Pelvis with contrast HISTORY: abd pain h/o multiple surgeries COMPARISON: 04/05/2011. TECHNIQUE: Contrast dose: Oral contrast only. Radiation dose: Total exam DLP = 966.22 mGy-cm. This CT exam was performed using one or more of the following dose reduction techniques: Automated exposure control, adjustment of the mA and/or kV according to patient size, and/or use of iterative reconstruction technique. FINDINGS: THICK-WALLED ABSCESS WITH AIR-FLUID LEVEL ANTERIOR ABDOMINAL WALL INTERPOSED BETWEEN THE RECTUS MUSCLE AND PERITONEAL REFLECTION MEASURING 3.1 X 12.2 CM. NO EVIDENCE OF FISTULOUS COMMUNICATION WITH THE SCAN OF 4 INTRAPERITONEAL EXTENSION. LOWER THORAX: Unremarkable. LIVER: Unremarkable. No gross lesion or ductal dilatation. GALLBLADDER AND BILE DUCTS: Unremarkable. PANCREAS: Unremarkable. No gross lesion or ductal dilatation. SPLEEN: Unremarkable. ADRENALS: Unremarkable. No mass. KIDNEYS AND URETERS: Unremarkable. No hydronephrosis. No solid mass. VASCULATURE: Unremarkable. No aortic aneurysm. BOWEL: Unremarkable. No obstruction. No gross mural thickening. Diverticulosis without an acute inflammatory component or other associated pathologic process. APPENDIX: Normal appendix. PERITONEUM: Unremarkable. No free fluid. No free air. LYMPH NODES: Unremarkable. No enlarged lymph nodes. BLADDER: Unremarkable. REPRODUCTIVE: Unremarkable. BONES: No acute fracture. OTHER FINDINGS: None. IMPRESSION: Anterior abscess deep to the rectus muscle without free communication with adjacent intraperitoneal contents including small bowel and colon. . No evidence of bowel obstruction. Concordant results (preliminary interpretation) provided by Pricing Assistant. Procedure Completed: 18:18 Preliminary (vRad) Report: Dictated and Authenticated: 18:43 Final Interpretation: 10:28. April 23, 2017.
[2017-04-23] MEDS ORDERED: Midazolam 2 MG/2 ML VIAL ONE ×2 (13:22→13:29)
[2017-04-23] MEDS ORDERED: Lidocaine 1% Inj (20ml) ONE (13:32)
--- NOTE | 2017-04-23 14:02 | CARD ---
APPROVED REPORT EKG Measurement Heart [id number] <Conclusion> Normal sinus rhythm Normal ECG
--- NOTE | 2017-04-23 14:20 | PCM.SURG1 ---
Surgeon's Initial Post Op Note - Surgeon's Notes Surgeon: Dat Fountain MD Hydrator: NONE Type of Anesthesia: IV Sedation Pre-Operative Diagnosis: Abdominal abscess Operative Findings: Complex anterior abdominal collection Post-Operative Diagnosis: Abdominal abscess Operation Performed: CT guided abdominal abscess drainage. Specimen/Specimens Removed: 10 cc of purulent drainage. Estimated Blood Loss: EBL {In ML}: 0 Blood Products Given: N/A Drains Used: No Drains Post-Op Condition: Fair Date of Surgery/Procedure: 04/23/17 Time of Surgery/Procedure: 14:10
[2017-04-23] MEDS ORDERED: Lactated Ringer's 1,000 ML IV ONE (15:10)
--- NOTE | 2017-04-23 15:50 | CP.PCM.DIS ---
Provider - Provider Date of Admission: 04/22/17 15:15 Attending physician: Lisa Roy MD Time Spent in preparation of Discharge (in minutes): 30 Hospital Course - Lab Results Lab Results: Most Recent Lab Values WBC 8.2 K/uL (4.8-10.8) 04/23/17 06:30 RBC 4.35 Mil/uL (3.80-5.20) 04/23/17 06:30 Hgb 11.2 g/dL (12.0-16.0) L 04/23/17 06:30 Hct 34.5 % (34.0-47.0) 04/23/17 06:30 MCV 79.2 fl (81.0-99.0) L 04/23/17 06:30 MCH 25.8 pg (27.0-31.0) L 04/23/17 06:30 MCHC 32.5 g/dL (33.0-37.0) L 04/23/17 06:30 RDW 14.4 % (11.5-14.5) 04/23/17 06:30 Plt Count 210 K/uL (130-400) 04/23/17 06:30 MPV 8.4 fl (7.2-11.7) 04/23/17 06:30 Neut % (Auto) 61.9 % (50.0-75.0) 04/23/17 06:30 Lymph % (Auto) 25.1 % (20.0-40.0) 04/23/17 06:30 [place] % (Auto) 11.5 % (0.0-10.0) H 04/23/17 06:30 Eos % (Auto) 0.9 % (0.0-4.0) 04/23/17 06:30 Baso % (Auto) 0.6 % (0.0-2.0) 04/23/17 06:30 Neut # 5.0 K/uL (1.8-7.0) 04/23/17 06:30 Lymph # 2.0 K/uL (1.0-4.3) 04/23/17 06:30 [place] # 0.9 K/uL (0.0-0.8) H 04/23/17 06:30 Eos # 0.1 K/uL (0.0-0.7) 04/23/17 06:30 Baso # 0.1 K/uL (0.0-0.2) 04/23/17 06:30 PT 12.8 Seconds (9.8-13.1) 04/22/17 15:49 INR 1.1 (0.9-1.2) 04/22/17 15:49 APTT 46.1 Seconds (25.6-37.1) H 04/22/17 15:49 Sodium 143 mmol/l (132-148) 04/23/17 06:30 Potassium 3.7 MMOL/L (3.6-5.0) 04/23/17 06:30 Chloride 106 mmol/L (98-107) 04/23/17 06:30 Carbon Dioxide 28 mmol/L (22-30) 04/23/17 06:30 Anion Gap 13 (10-20) 04/23/17 06:30 BUN 16 mg/dl (7-17) 04/23/17 06:30 Creatinine 0.8 mg/dL (0.7-1.2) 04/23/17 06:30 Est GFR ( Amer) > 60 04/23/17 06:30 Est GFR (Non-Af Amer) > 60 04/23/17 06:30 Random Glucose 93 mg/dL (65-105) 04/23/17 06:30 Lactic Acid 2.4 MMOL/L (0.7-2.1) H 04/22/17 15:49 Calcium 8.4 mg/dL (8.4-10.2) 04/23/17 06:30 Total Bilirubin 0.5 mg/dl (0.2-1.3) 04/23/17 06:30 AST 22 U/L (14-36) 04/23/17 06:30 ALT 32 U/L (9-52) 04/23/17 06:30 Alkaline Phosphatase 73 U/L (38-126) 04/23/17 06:30 Lactate Dehydrogenase 469 U/L (313-618) 04/22/17 15:49 Total Protein 6.6 G/DL (6.3-8.2) 04/23/17 06:30 Albumin 3.5 g/dL (3.5-5.0) 04/23/17 06:30 Globulin 3.1 gm/dL (2.2-3.9) 04/23/17 06:30 Albumin/Globulin Ratio 1.1 (1.0-2.1) 04/23/17 06:30 Lipase 81 U/L (23-300) 04/22/17 15:49 Urine Opiates Screen Negative (NEGATIVE) 04/22/17 16:29 Urine Methadone Screen Negative (NEGATIVE) 04/22/17 16:29 Ur Barbiturates Screen Negative (NEGATIVE) 04/22/17 16:29 Ur Phencyclidine Scrn Negative (NEGATIVE) 04/22/17 16:29 Ur Amphetamines Screen Negative (NEGATIVE) 04/22/17 16:29 U Benzodiazepines Scrn Negative (NEGATIVE) 04/22/17 16:29 U Oth Cocaine Metabols Negative (NEGATIVE) 04/22/17 16:29 U Cannabinoids Screen Negative (NEGATIVE) 04/22/17 16:29 Alcohol, Quantitative < 10 mg/dl (0-10) 04/22/17 15:49 Discharge Exam - Head Exam Head Exam: ATRAUMATIC, NORMAL INSPECTION, NORMOCEPHALIC - Eye Exam Eye Exam: EOMI, Normal appearance, PERRL Pupil Exam: NORMAL ACCOMODATION - ENT Exam ENT Exam: Mucous Membranes Moist, Normal Oropharynx - Neck Exam Neck exam: Full Rom, Normal Inspection - Respiratory Exam Respiratory Exam: Clear to PA & Lateral, NORMAL BREATHING PATTERN, UNREMARKABLE - Cardiovascular Exam Cardiovascular Exam: RRR, +S1, +S2 - GI/Abdominal Exam GI & Abdominal Exam: Normal Bowel Sounds, Soft. absent: Mass, Organomegaly, Tenderness - Extremities Exam Extremities exam: normal capillary refill, pedal pulses present - Back Exam Back exam: absent: CVA tenderness (L), CVA tenderness (R) - Neurological Exam Neurological exam: Alert, Oriented x3 - Psychiatric Exam Psychiatric exam: Normal Affect, Normal Mood - Skin Skin Exam: Dry, Warm Discharge Plan - Follow Up Plan Condition: GUARDED Disposition: HOME/ ROUTINE Additional Instructions: Follow up with the surgeon who performed your original surgery--Dr. Hameed, as soon as possible for treatment. FOLLOW UP PCP IN ONE WEEK, IF YOU DO NOT HAVE A PRIMARY CARE DOCTOR, GO TO [facility]. RESUME LOW FAT LOW CHOLESTEROL DIET RESUME ACTIVITY TOLERATED RETURN TO ANY ER IF CONDITION WORSENS Referrals: Maria Dolores Hameed MD [Medical Doctor] - [facility] [Provider Group]
--- NOTE | 2017-04-23 19:06 | CP.PCM.PN ---
Subjective - Date & Time of Evaluation Date of Evaluation: 04/23/17 Time of Evaluation: 19:00 - Subjective Subjective: patient seen examined at bedside today extremely agitated regarding time of drainage of abdominal abscess today she expressed desire to go home, and to see the surgeon who did her initial procedure. It was explained in great detail that she would have to sign out AMA in order to see that surgeon. Patient insisted we bring him here. It was explained again this was not possible. Patient was given option to AMA or stay and wait for her drainage by IR at 130pm. Patient agreed to stay. Patient was discharged home, however refused to learn how to care for her SAW drain. It was again explained to the patient that if she refused to learn how to care for her SAW drain, she would have to stay another day, OR she had the option to AMA. Patient became increasingly hostile, security had to be called, as she also refused to allow nursing to remove her IV. Patient has decided to stay until tomorrow. Vitals are stable. patient is in NO acute distress. Objective - Vital Signs/Intake and Output Vital Signs (last 24 hours): Temp Pulse Resp BP Pulse Ox 97.3 F L 66 18 118/62 98 04/23/17 14:50 04/23/17 15:10 04/23/17 15:10 04/23/17 15:10 04/23/17 15:10 Intake and Output: 04/23/17 04/24/17 18:59 06:59 Intake Total 150 Balance 150 - Medications Medications: Current Medications Albuterol/Ipratropium (Duoneb 3 Mg/0.5 Mg (3 Ml) Ud) 3 ml INH RQ6 PRN PRN Reason: Shortness of Breath Escitalopram Oxalate (Lexapro) 20 mg PO DAILY HUAN Dextrose/Sodium Chloride (Dextrose 5%-0.9% Ns 500 Ml) 1,000 mls @ 100 mls/hr IV .Q10H HUAN Last Admin: 04/22/17 21:50 Dose: 100 mls/hr Vancomycin HCl 1 gm/ Sodium (Chloride) 250 mls @ 166.667 mls/hr IVPB Q12 HUAN Last Admin: 04/23/17 09:04 Dose: 166.667 mls/hr Piperacillin Sod/Tazobactam (Sod 3.375 gm/ Sodium Chloride) 100 mls @ 100 mls/ hr IVPB Q6 ON LICENSE OF [facility] Last Admin: 04/23/17 16:25 Dose: 100 mls/hr Lactated Ringer's (Lactated Ringer's) 1,000 mls @ 125 mls/hr IV .Q8H ON LICENSE OF [facility] Morphine Sulfate (Morphine) 2 mg IVP Q4 PRN PRN Reason: Pain, moderate (4-7) Morphine Sulfate (Morphine) 1 mg IVP Q4 PRN PRN Reason: Pain, Mild (1-3) Ondansetron HCl (Zofran Inj) 4 mg IVP Q6 PRN PRN Reason: Nausea/Vomiting Fluticasone/Salmeterol (Advair Diskus 250/50) 1 puff IH DAILY ON LICENSE OF [facility] - Labs Labs: 04/23/17 06:30 04/23/17 06:30 PT 12.8 Seconds (9.8-13.1) 04/22/17 15:49 INR 1.1 (0.9-1.2) 04/22/17 15:49 APTT 46.1 Seconds (25.6-37.1) H 04/22/17 15:49 - Constitutional Appears: Non-toxic, No Acute Distress - Head Exam Head Exam: ATRAUMATIC, NORMOCEPHALIC - Eye Exam Eye Exam: EOMI, Normal appearance, PERRL Pupil Exam: NORMAL ACCOMODATION - ENT Exam ENT Exam: Mucous Membranes Moist, Normal Oropharynx - Neck Exam Neck Exam: Full ROM, Normal Inspection - Respiratory Exam Respiratory Exam: Clear to Ausculation Bilateral, NORMAL BREATHING PATTERN - Cardiovascular Exam Cardiovascular Exam: RRR, +S1, +S2 - GI/Abdominal Exam GI & Abdominal Exam: Soft, Normal Bowel Sounds. absent: Organomegaly - Extremities Exam Extremities Exam: Full ROM, Normal Capillary Refill - Back Exam Back Exam: absent: CVA tenderness (L), CVA tenderness (R) - Neurological Exam Neurological Exam: Alert, Awake - Psychiatric Exam Psychiatric exam: Normal Affect, Normal Mood - Skin Skin Exam: Dry, Warm Assessment and Plan - Assessment and Plan (Free Text) Plan: 46 y/o female with MHx significant for asthma and for multiple hernia surgeries with implanted mesh (done at [facility]). She comes in with worsening abd pain since yesterday AM. Pain is localized to L abdomen it appears. It is waxing /waning. Nothing seems to make it better or worse. Patient found to have abdominal abscess. Abd Abscess IR drainage today Seen by surgery, appreciated and followed cont IV abx patient refused to receive education on SAW drain care patient also refused to leave today patient given option to AMA no WBC afebrile D/C tomorrow with follow up with patient's surgeon at [facility].
[2017-04-24] MEDS: Piperacillin/Tazobact 3.375 GM in Sodium Chloride 0.9% 100 ML IVPB SCH ×2 (03:46→09:09)
[2017-04-24 06:39] LABS: BASO % 0.4 % (0.0-2.0); EOS # 0.1 K/uL (0.0-0.7); EOS % 1.5 % (0.0-4.0); HEMATOCRIT 35.6 % (34.0-47.0); LYMPH # 1.8 K/uL (1.0-4.3); MEAN CELL VOLUME 79.4 fl (81.0-99.0); MEAN CORPUSCULAR HEMOGLOBIN 25.6 pg (27.0-31.0); MEAN CORPUSCULAR HGB CONC 32.3 g/dL (33.0-37.0); MEAN PLATELET VOLUME 8.2 fl (7.2-11.7); MONO # 0.7 K/uL (0.0-0.8); MONO % 8.9 % (0.0-10.0); NEUT # 5.3 K/uL (1.8-7.0); NEUT % 66.2 % (50.0-75.0); RED CELL DISTRIBUTION WIDTH 14.4 % (11.5-14.5)
[2017-04-24 07:02] LABS: ALB/GLOB RATIO 1.2 (1.0-2.1); ALKALINE PHOSPHATASE 85 U/L (38-126); ALT/SGPT 61 U/L (9-52); AST/SGOT 63 U/L (14-36); BILIRUBIN,TOTAL 0.6 mg/dl (0.2-1.3); BLOOD UREA NITROGEN 13 mg/dl (7-17); CARBON DIOXIDE 29 mmol/L (22-30); CHLORIDE 103 mmol/L (98-107); GFR AFRICAN-AMERICAN > 60; GLUCOSE,RANDOM 90 mg/dL (65-105); POTASSIUM 4.2 MMOL/L (3.6-5.0); SODIUM 141 mmol/l (132-148); TOTAL PROTEIN 7.3 G/DL (6.3-8.2)
--- NOTE | 2017-04-24 08:16 | CP.PCM.PN ---
Subjective - Date & Time of Evaluation Date of Evaluation: 04/24/17 Time of Evaluation: 07:30 - Subjective Subjective: Patient seen and examined this morning. No complaints. States she is not sure she can manage drain care at home. Patient states she spoke with Dr. Lewis from [facility] who states he will see patient on May 01, or sooner if she is transferred to [facility] prior to that date. IR drain in place, serosanguinous output : 40cc/24hr. Objective - Vital Signs/Intake and Output Vital Signs (last 24 hours): Temp Pulse Resp BP Pulse Ox 97.7 F 78 20 107/69 96 04/24/17 00:05 04/24/17 00:05 04/24/17 00:05 04/24/17 00:05 04/24/17 00:05 Intake and Output: 04/24/17 04/24/17 06:59 18:59 Output Total 40 Balance -40 - Medications Medications: Current Medications Albuterol/Ipratropium (Duoneb 3 Mg/0.5 Mg (3 Ml) Ud) 3 ml INH RQ6 PRN PRN Reason: Shortness of Breath Escitalopram Oxalate (Lexapro) 20 mg PO DAILY [facility] Dextrose/Sodium Chloride (Dextrose 5%-0.9% Ns 500 Ml) 1,000 mls @ 100 mls/hr IV .Q10H [facility] Last Admin: 04/24/17 03:32 Dose: Not Given Vancomycin HCl 1 gm/ Sodium (Chloride) 250 mls @ 166.667 mls/hr IVPB Q12 HUAN Last Admin: 04/23/17 20:22 Dose: 166.667 mls/hr Piperacillin Sod/Tazobactam (Sod 3.375 gm/ Sodium Chloride) 100 mls @ 100 mls/ hr IVPB Q6 [facility] Last Admin: 04/24/17 03:46 Dose: 100 mls/hr Lactated Ringer's (Lactated Ringer's) 1,000 mls @ 125 mls/hr IV .Q8H [facility] Last Admin: 04/23/17 23:00 Dose: Not Given Morphine Sulfate (Morphine) 2 mg IVP Q4 PRN PRN Reason: Pain, moderate (4-7) Last Admin: 04/23/17 20:14 Dose: 2 mg Morphine Sulfate (Morphine) 1 mg IVP Q4 PRN PRN Reason: Pain, Mild (1-3) Ondansetron HCl (Zofran Inj) 4 mg IVP Q6 PRN PRN Reason: Nausea/Vomiting Fluticasone/Salmeterol (Advair Diskus 250/50) 1 puff IH DAILY HUAN - Labs Labs: 04/24/17 05:45 04/24/17 05:45 PT 12.8 Seconds (9.8-13.1) 04/22/17 15:49 INR 1.1 (0.9-1.2) 04/22/17 15:49 APTT 46.1 Seconds (25.6-37.1) H 04/22/17 15:49 - Constitutional Appears: No Acute Distress - Head Exam Head Exam: NORMOCEPHALIC - Eye Exam Eye Exam: Normal appearance - ENT Exam ENT Exam: Mucous Membranes Moist - Respiratory Exam Respiratory Exam: NORMAL BREATHING PATTERN - Cardiovascular Exam Cardiovascular Exam: +S1, +S2 - GI/Abdominal Exam GI & Abdominal Exam: Tenderness Additional comments: LUQ tenderness on palpation - Neurological Exam Neurological Exam: Alert, Awake, Oriented x3 - Psychiatric Exam Psychiatric exam: Normal Mood - Skin Skin Exam: Dry, Intact, Warm Assessment and Plan - Assessment and Plan (Free Text) Assessment: 46F with intra-abdominal abscess d/t infected mesh s/p hernia repair in Sep 2016 s/p IR drain placement -heart healthy diet - C/w abx - Pain control - Pt to see original surgeon at [facility] for mesh removal -D/w Dr. Jc
[2017-04-24 08:36] VITALS: PULSE 72; TEMP 98.1
[2017-04-24 09:31] VITALS: BP 136/80; RESP 18; O2SAT 96
--- NOTE | 2017-04-24 10:41 | CP.PCM.DIS ---
Provider - Provider Date of Admission: 04/22/17 15:15 Attending physician: Lisa Roy MD Time Spent in preparation of Discharge (in minutes): 45 Diagnosis - Discharge Diagnosis (1) Abdominal abscess Status: Acute Hospital Course - Lab Results Lab Results: Most Recent Lab Values WBC 8.0 K/uL (4.8-10.8) 04/24/17 05:45 RBC 4.48 Mil/uL (3.80-5.20) 04/24/17 05:45 Hgb 11.5 g/dL (12.0-16.0) L 04/24/17 05:45 Hct 35.6 % (34.0-47.0) 04/24/17 05:45 MCV 79.4 fl (81.0-99.0) L 04/24/17 05:45 MCH 25.6 pg (27.0-31.0) L 04/24/17 05:45 MCHC 32.3 g/dL (33.0-37.0) L 04/24/17 05:45 RDW 14.4 % (11.5-14.5) 04/24/17 05:45 Plt Count 230 K/uL (130-400) 04/24/17 05:45 MPV 8.2 fl (7.2-11.7) 04/24/17 05:45 Neut % (Auto) 66.2 % (50.0-75.0) 04/24/17 05:45 Lymph % (Auto) 23.0 % (20.0-40.0) 04/24/17 05:45 [place] % (Auto) 8.9 % (0.0-10.0) 04/24/17 05:45 Eos % (Auto) 1.5 % (0.0-4.0) 04/24/17 05:45 Baso % (Auto) 0.4 % (0.0-2.0) 04/24/17 05:45 Neut # 5.3 K/uL (1.8-7.0) 04/24/17 05:45 Lymph # 1.8 K/uL (1.0-4.3) 04/24/17 05:45 [place] # 0.7 K/uL (0.0-0.8) 04/24/17 05:45 Eos # 0.1 K/uL (0.0-0.7) 04/24/17 05:45 Baso # 0.0 K/uL (0.0-0.2) 04/24/17 05:45 PT 12.8 Seconds (9.8-13.1) 04/22/17 15:49 INR 1.1 (0.9-1.2) 04/22/17 15:49 APTT 46.1 Seconds (25.6-37.1) H 04/22/17 15:49 Sodium 141 mmol/l (132-148) 04/24/17 05:45 Potassium 4.2 MMOL/L (3.6-5.0) 04/24/17 05:45 Chloride 103 mmol/L (98-107) 04/24/17 05:45 Carbon Dioxide 29 mmol/L (22-30) 04/24/17 05:45 Anion Gap 13 (10-20) 04/24/17 05:45 BUN 13 mg/dl (7-17) 04/24/17 05:45 Creatinine 0.8 mg/dL (0.7-1.2) 04/24/17 05:45 Est GFR ( Amer) > 60 04/24/17 05:45 Est GFR (Non-Af Amer) > 60 04/24/17 05:45 Random Glucose 90 mg/dL (65-105) 04/24/17 05:45 Lactic Acid 2.4 MMOL/L (0.7-2.1) H 04/22/17 15:49 Calcium 9.0 mg/dL (8.4-10.2) 04/24/17 05:45 Total Bilirubin 0.6 mg/dl (0.2-1.3) 04/24/17 05:45 AST 63 U/L (14-36) H D 04/24/17 05:45 ALT 61 U/L (9-52) H D 04/24/17 05:45 Alkaline Phosphatase 85 U/L (38-126) 04/24/17 05:45 Lactate Dehydrogenase 469 U/L (313-618) 04/22/17 15:49 Total Protein 7.3 G/DL (6.3-8.2) 04/24/17 05:45 Albumin 3.9 g/dL (3.5-5.0) 04/24/17 05:45 Globulin 3.4 gm/dL (2.2-3.9) 04/24/17 05:45 Albumin/Globulin Ratio 1.2 (1.0-2.1) 04/24/17 05:45 Lipase 81 U/L (23-300) 04/22/17 15:49 Urine Opiates Screen Negative (NEGATIVE) 04/22/17 16:29 Urine Methadone Screen Negative (NEGATIVE) 04/22/17 16:29 Ur Barbiturates Screen Negative (NEGATIVE) 04/22/17 16:29 Ur Phencyclidine Scrn Negative (NEGATIVE) 04/22/17 16:29 Ur Amphetamines Screen Negative (NEGATIVE) 04/22/17 16:29 U Benzodiazepines Scrn Negative (NEGATIVE) 04/22/17 16:29 U Oth Cocaine Metabols Negative (NEGATIVE) 04/22/17 16:29 U Cannabinoids Screen Negative (NEGATIVE) 04/22/17 16:29 Alcohol, Quantitative < 10 mg/dl (0-10) 04/22/17 15:49 - Hospital Course Hospital Course: 46 y/o female with MHx significant for asthma and for multiple hernia surgeries with implanted mesh (done at [facility]). She comes in with worsening abd pain since yesterday AM. Pain is localized to L abdomen it appears. It is waxing /waning. Nothing seems to make it better or worse. Patient found to have abdominal abscess. Patient underwent drainage of abscess per IR. Patient refused to receive education on SAW drain care yesterday as well as today by author. Patient continues to be extremely hostile, constantly using profane language. Patient also making threats to this author after it was explained that she required SAW drain education in order to be safely discharged home. She was again given the option to sign out AMA after repeating over and over that she wants to be discharged without education for SAW drain care. Patient then insisted on seeing "male doctor." Surgical team at bedside later this morning as well. Education provided by Dr. Jc for SAW drain care, and ok to be discharged from surgical standpoint. Patient HD stable and medically stable for safe discharge home at this time, with follow up with Dr. Hameed, patient's surgeon [facility]. Patient states she has already made an appointment with him for May 01. However it was stressed to patient to follow up earlier if she feels need/condition worsens. Patient also advised to follow up at nearest emergency room, should her condition worsen. Abdominal Abscess IR drainage yesterday Seen by surgery, appreciated and followed. Education for SAW drain care by surgery team. Discussed this with Dr. Jc extensively. IV abx given inpatient. No other recs at this time. patient refused to receive education on SAW drain care yesterday as well as today by author. Patient insisted on seeing "male doctor." patient given option to AMA no WBC afebrile D/C with follow up with patient's surgeon at [facility] and her Primary care physician. If patient does not wish to follow up with her PCP, she has been advised to follow up with the [facility]. Discharge Exam - Head Exam Head Exam: ATRAUMATIC, NORMOCEPHALIC Additional comments: MORBIDLY OBESE - Eye Exam Eye Exam: EOMI, Normal appearance, PERRL - ENT Exam ENT Exam: Mucous Membranes Moist, Normal Oropharynx - Neck Exam Neck exam: Full Rom, Normal Inspection - Respiratory Exam Respiratory Exam: Clear to PA & Lateral, NORMAL BREATHING PATTERN - Cardiovascular Exam Cardiovascular Exam: RRR, +S1, +S2 - GI/Abdominal Exam GI & Abdominal Exam: Soft. absent: Tenderness Additional comments: SAW DRAIN IN PLACE SM AMOUNT SEROSANG FLUID NO MASS OR HSM ABLE TO BE APPRECIATED DUE TO LARGE HABITUS - Extremities Exam Extremities exam: normal capillary refill, pedal pulses present - Back Exam Back exam: absent: CVA tenderness (L), CVA tenderness (R) - Neurological Exam Neurological exam: Alert, Oriented x3 - Psychiatric Exam Psychiatric exam: Normal Affect, Normal Mood - Skin Skin Exam: Dry, Warm Discharge Plan - Follow Up Plan Condition: GUARDED Disposition: HOME/ ROUTINE Instructions: Bakari-Harry Drain Care (DC), Bakari-Harry Drain Care (GEN), Abscess (GEN) Additional Instructions: Follow up with the surgeon who performed your original surgery--Dr. Hameed, as soon as possible for treatment. FOLLOW UP PCP IN ONE WEEK, IF YOU DO NOT HAVE A PRIMARY CARE DOCTOR, GO TO [facility]. RESUME LOW FAT LOW CHOLESTEROL DIET RESUME ACTIVITY TOLERATED RETURN TO ANY ER IF CONDITION WORSENS Referrals: [facility] [Provider Group] Maria Dolores Hameed MD [Medical Doctor] -
== END 2017-04-24 13:15 | disposition home or self-care (01) | DRG 919 ==
LOC: H.ER 14:35 → H.EROBSV 15:15 → OBSVTOIN 15:15 → H.ERHOLD 20:49 → H.MEDSURG1 23:44
PROVIDERS: ADMIT Internal Medicine; ATTEND Internal Medicine
PROC: 5A09357 Assistance with Respiratory Ventilation, Less than 24 Consecutive Hours, Continuous Positive Airway Pressure (ICD-10-PCS; 2017-04-23)
PROC: 0W9G3ZZ Drainage of Peritoneal Cavity, Percutaneous Approach (ICD-10-PCS; principal; 2017-04-23 13:30)
DX: T85.79XA Infection and inflammatory reaction due to other internal prosthetic devices, implants and grafts, initial encounter (principal); K65.1 Peritoneal abscess; Z68.42 Body mass index [BMI] 45.0-49.9, adult; F17.200 Nicotine dependence, unspecified, uncomplicated; Y83.2 Surgical operation with anastomosis, bypass or graft as the cause of abnormal reaction of the patient, or of later complication, without mention of misadventure at the time of the procedure; Y92.9 Unspecified place or not applicable; H40.9 Unspecified glaucoma; J45.909 Unspecified asthma, uncomplicated; N32.81 Overactive bladder; Z98.51 Tubal ligation status; E66.01 Morbid (severe) obesity due to excess calories; Z71.3 Dietary counseling and surveillance; F32.9 Major depressive disorder, single episode, unspecified; F41.9 Anxiety disorder, unspecified; J40 Bronchitis, not specified as acute or chronic; K29.70 Gastritis, unspecified, without bleeding

== ENCOUNTER 2018-07-29 22:50 | Emergency (ER) | payer OTHER ==
[2018-07-29 22:50] VITALS: BMI 49.4
[2018-07-29 22:58] VITALS: RESP 18
[2018-07-29] MEDS ORDERED: Sodium Chloride 0.9% 1,000 ML IV STA (23:22)
--- NOTE | 2018-07-29 23:26 | ED PDOC ---
HPI:Nausea, Vomiting, Diarrhea Time Seen by Provider: 07/29/18 23:02 Chief Complaint (Nursing): GI Problem Chief Complaint (Provider): diarrhea History Per: Patient History/Exam Limitations: no limitations Onset/Duration Of Symptoms: Hrs (24) Current Symptoms Are (Timing): Still Present Additional Complaint(s): 47 y/o female presents for evaluation of multiple episodes of diarrhea x 24 hours. Associated intermittent abdominal cramping. Denies fever, vomiting, chest pain, shortness of breath, palpitations, urinary symptoms, recent travel, sick contacts. Past Medical History Reviewed: Historical Data, Nursing Documentation, Vital Signs Vital Signs: Last Vital Signs Temp 98.6 F 07/29/18 22:53 Pulse 104 H 07/29/18 22:53 Resp 18 07/29/18 22:53 BP 107/87 07/29/18 22:53 Pulse Ox 99 07/29/18 22:53 - Medical History PMH: Anxiety, Asthma, Bronchitis, Depression, Gastritis - Surgical History Surgical History: Endoscopy, Hernia Repair (ventral and inguinal x2), (x3) - Family History Family History: States: Unknown Family Hx, Hypertension - Home Medications Home Medications: Ambulatory Orders Medication Instructions Recorded Loratadine 10 mg PO DAILY 10/21/15 hydrOXYzine HCl [Atarax] 25 mg PO HS 12/09/15 Escitalopram [Lexapro] 1 tab PO DAILY 04/22/17 Dicyclomine [Bentyl] 20 mg PO TID PRN #15 tab 07/30/18 - Allergies Allergies/Adverse Reactions: Allergies Allergy/AdvReac Type Severity Reaction Status Date / Time iodine Allergy RASH Verified 04/22/17 14:38 shellfish derived Allergy RASH Verified 04/22/17 14:38 Review of Systems ROS Statement: Except As Marked, All Systems Reviewed And Found Negative Gastrointestinal: Positive for: Abdominal Pain, Diarrhea Physical Exam - Reviewed Nursing Documentation Reviewed: Yes Vital Signs Reviewed: Yes - Physical Exam Appears: Positive for: Well, Non-toxic, No Acute Distress Head Exam: Positive for: ATRAUMATIC, NORMAL INSPECTION, NORMOCEPHALIC Skin: Positive for: Normal Color Eye Exam: Positive for: Normal appearance ENT: Positive for: Normal ENT Inspection Cardiovascular/Chest: Positive for: Regular Rate, Rhythm Respiratory: Positive for: Normal Breath Sounds Gastrointestinal/Abdominal: Positive for: Bowel Sounds, Soft. Negative for: Tenderness Back: Positive for: Normal Inspection Extremity: Positive for: Normal ROM Neurologic/Psych: Positive for: Alert, Oriented - Laboratory Results Result Diagrams: 07/29/18 23:45 07/29/18 23:45 - ECG O2 Sat by Pulse Oximetry: 99 - Progress ED Course And Treament: labs, IV fluids On re-eval, patient sleeping; upon awakening states she is feeling better Patient educated on findings, discharged with rx Bentyl Advised fluids, bland diet Follow up PMD 2-3 days Return precautions given Patient demonstrates full understanding of discharge instructions. Patient requires no further intervention in the ED and is stable for discharge at this time Disposition - Clinical Impression Clinical Impression: Acute gastroenteritis - Patient ED Disposition Is Patient to be Admitted: No Counseled Patient/Family Regarding: Studies Performed, Diagnosis, Need For Followup, Rx Given - Disposition Disposition: Routine/Home Disposition Time: 01:38 Condition: IMPROVED Prescriptions: Dicyclomine [Bentyl] 20 mg PO TID PRN #15 tab PRN Reason: Pain, Mild (1-3) Instructions: Gastroenteritis (ED) Forms: [employer] (Danish)
[2018-07-30 00:10] LABS: BASO % 0.2 % (0.0-2.0); EOS % 0.1 % (0.0-4.0); HEMOGLOBIN 13.4 g/dL (12.0-16.0); LYMPH # 1.8 K/uL (1.0-4.3); LYMPH % 16.6 % (20.0-40.0); MEAN CELL VOLUME 80.4 fl (81.0-99.0); MEAN CORPUSCULAR HEMOGLOBIN 26.3 pg (27.0-31.0); MEAN CORPUSCULAR HGB CONC 32.6 g/dL (33.0-37.0); MEAN PLATELET VOLUME 9.2 fl (7.2-11.7); MONO % 8.8 % (0.0-10.0); NEUT # 8.2 K/uL (1.8-7.0); NEUT % 74.3 % (50.0-75.0); NRBC % 0.1 % (0.0-0.0); RBC 5.1 Mil/uL (3.80-5.20); RED CELL DISTRIBUTION WIDTH 13.7 % (11.5-14.5)
[2018-07-30 00:19] LABS: ALB/GLOB RATIO 1.1 (1.0-2.1); ALBUMIN 4.8 g/dL (3.5-5.0); ALT/SGPT 46 U/L (9-52); AST/SGOT 48 U/L (14-36); BLOOD UREA NITROGEN 15 mg/dl (7-17); GFR NON-AFRICAN AMERICAN > 60; LIPASE 74 U/L (23-300)
[2018-07-30 00:27] LABS: SQUAMOUS EPITHIAL 14 /hpf (0-5); URINE BACTERIA RARE (<OCC); URINE BILIRUBIN SMALL (NEGATIVE); URINE BLOOD SMALL (NEGATIVE); URINE CLARITY CLOUDY (Clear); URINE COLOR AMBER (YELLOW); URINE GLUCOSE (UA) NEG (Normal); URINE LEUKOCYTE ESTERASE SMALL Leu/uL (Negative); URINE PROTEIN 100 mg/dL (NEGATIVE)
[2018-07-30 02:20] VITALS: BP 136/77; PULSE 70; TEMP 97.6; O2SAT 98
== END 2018-07-30 01:43 | disposition home or self-care (01) ==
LOC: H.ER 22:50
DX: K52.9 Noninfective gastroenteritis and colitis, unspecified (principal); Z86.59 Personal history of other mental and behavioral disorders; J45.909 Unspecified asthma, uncomplicated
CPT/HCPCS: 80053; 81003; 81025; 83690; 85025; 96360; 99284; J7030

== ENCOUNTER 2018-10-16 14:45 | Emergency (ER) | payer OTHER ==
[2018-10-16 14:45] VITALS: BMI 49.4
[2018-10-16 15:20] VITALS: BP 104/68; PULSE 68; RESP 16; TEMP 98.1; O2SAT 99
[2018-10-16 16:46] LABS: BARBITURATES, UR NEGATIVE (NEGATIVE); BENZODIAZEPINES, UR NEGATIVE (NEGATIVE); OPIATES, UR NEGATIVE (NEGATIVE); PHENCYCLIDINE, UR NEGATIVE (NEGATIVE)
--- NOTE | 2018-10-16 17:33 | RAD ---
Date of service: 10/16/2018 HISTORY: pain COMPARISON: No prior. FINDINGS: BONES: There is normal alignment of the thoracic vertebral bodies. There is normal thoracic kyphosis. No acute fracture or bone destruction. DISC SPACES: Mild multilevel degenerative disc disease in the midthoracic spine with anterior spurring and reduced disc heights. SOFT TISSUES: Normal. OTHER FINDINGS: None. IMPRESSION: No acute fracture. Mild multilevel degenerative disc disease in the midthoracic spine.
--- NOTE | 2018-10-16 17:33 | RAD ---
Date of service: 10/16/2018 PROCEDURE: Radiographs of the Lumbar Spine. HISTORY: pain COMPARISON: No prior. FINDINGS: BONES: There is normal alignment of the lumbar vertebral bodies. There is normal lumbar lordosis. There is no acute fracture, spondylolysis or spondylolisthesis. Bone mineralization is normal. DISC SPACES: There is mild degenerative disc disease at L1-2 with reduced disc height and anterior spurring. The remaining disc heights are maintained. There is mild multilevel facet arthropathy in the lower lumbar spine. OTHER FINDINGS: None. IMPRESSION: No acute fracture, spondylolysis or spondylolisthesis. Mild degenerative disc disease at L1-2.
--- NOTE | 2018-10-16 17:39 | ED PDOC ---
HPI: Back Time Seen by Provider: 10/16/18 15:42 Chief Complaint (Nursing): Abnormal Skin Integrity Chief Complaint (Provider): Back Pain, Abscess History Per: Patient History/Exam Limitations: no limitations Onset/Duration Of Symptoms: Days (x4) Current Symptoms Are (Timing): Still Present Additional Complaint(s): 48 year old female presents to the ED for evaluation of an abscess and back pain. She reports that for the past four days, she has had back atraumatic, non- radiating upper and lower back pain worse with movement associated with urinary frequency and urgency. Additionally, she notes she had an abscess on her back for the past week that broke yesterday and has since been less painful after releasing discharge. Otherwise, denies trauma, abdominal pain, incontinence, fever, chills, and dysuria. PMD: Han Tarango Past Medical History Reviewed: Historical Data, Nursing Documentation, Vital Signs Vital Signs: Last Vital Signs Temp 98.1 F 10/16/18 15:15 Pulse 68 10/16/18 15:15 Resp 16 10/16/18 15:15 BP 104/68 10/16/18 15:15 Pulse Ox 99 10/16/18 15:15 - Medical History PMH: Anxiety, Asthma, Bronchitis, Depression, Gastritis Denies: Chronic Kidney Disease - Surgical History Surgical History: Endoscopy, Hernia Repair (ventral and inguinal x2), (x3) - Family History Family History: States: Hypertension - Social History Current smoker - smoking cessation education provided: Yes (light) Alcohol: None Drugs: Denies - Home Medications Home Medications: Ambulatory Orders Medication Instructions Recorded RX: Loratadine 10 mg PO DAILY 10/21/15 RX: hydrOXYzine HCl [Atarax] 25 mg PO HS 12/09/15 RX: Escitalopram [Lexapro] 1 tab PO DAILY 04/22/17 Dicyclomine [Bentyl] 20 mg PO TID PRN #15 tab 07/30/18 Cyclobenzaprine [Cyclobenzaprine 10 mg PO Q8 PRN #10 tab 10/16/18 HCl] RX: Naproxen [Naprosyn] 500 mg PO BID PRN #10 tab 10/16/18 Sulfamethoxazole/Trimethoprim 2 tab PO BID #28 tab 10/16/18 [Bactrim DS 800 mg-160 mg] - Allergies Allergies/Adverse Reactions: Allergies Allergy/AdvReac Type Severity Reaction Status Date / Time iodine Allergy RASH Verified 10/16/18 15:15 shellfish derived Allergy RASH Verified 10/16/18 15:15 Review of Systems ROS Statement: Except As Marked, All Systems Reviewed And Found Negative Constitutional: Negative for: Fever, Chills Genitourinary Female: Positive for: Frequency (and urgency). Negative for: Dysuria, Incontinence Musculoskeletal: Positive for: Back Pain (atraumatic non-radiating upper and lower, worse with movement) Skin: Positive for: Other (draining abscess on back) Physical Exam - Reviewed Nursing Documentation Reviewed: Yes Vital Signs Reviewed: Yes - Physical Exam Appears: Positive for: No Acute Distress Respiratory: Positive for: Normal Breath Sounds. Negative for: Respiratory Distress Gastrointestinal/Abdominal: Positive for: Normal Exam, Soft. Negative for: Tenderness Back: Positive for: Other (bilateral upper paralumbar muscle spasm). Negative for: Vertebral Tenderness Extremity: Positive for: Other (right buttock: healing drained abscess without surrounding erythema, warmth, drainage, or ulcer) - Laboratory Results Urine POC: Sent To The Lab For Verification Urine dip results: Positive for: Leukocyte Esterase (negative), Nitrate (positive) - ECG O2 Sat by Pulse Oximetry: 99 (RA) Pulse Ox Interpretation: Normal Medical Decision Making Medical Decision Making: Time: 1550 Initial Impression: urinary frequency / urgency, back pain, abscess Initial Plan: --Urine drug screen --U-dip --Flexeril 10mg PO --Toradol 30mg IM --Urine culture --Lumbar spine AP/LAT XR --Thoracic spine XR --Urinalysis 1722 Thoracic Spine XR FINDINGS: BONES: There is normal alignment of the thoracic vertebral bodies. There is normal thoracic kyphosis. No acute fracture or bone destruction. DISC SPACES: Mild multilevel degenerative disc disease in the midthoracic spine with anterior spurring and reduced disc heights. SOFT TISSUES: Normal. OTHER FINDINGS: None. IMPRESSION: No acute fracture. Mild multilevel degenerative disc disease in the midthoracic spine. 1722 L-Spine XR FINDINGS: BONES: There is normal alignment of the lumbar vertebral bodies. There is normal lumbar lordosis. There is no acute fracture, spondylolysis or spondylolisthesis. Bone mineralization is normal. DISC SPACES: There is mild degenerative disc disease at L1-2 with reduced disc height and anterior spurring. The remaining disc heights are maintained. There is mild multilevel facet arthropathy in the lower lumbar spine. OTHER FINDINGS: None. IMPRESSION: No acute fracture, spondylolysis or spondylolisthesis. Mild degenerative disc disease at L1-2. 1800 Upon reevaluation, patient reports improvement in pain, and is informed of all results. She is agreeable with plan. Scribe Attestation: Documented by Jena Curtis, acting as a scribe for Ibrahima Casas PA-C Provider Scribe Attestation: All medical record entries made by the Scribe were at my direction and personally dictated by me. I have reviewed the chart and agree that the record accurately reflects my personal performance of the history, physical exam, medical decision making, and the department course for this patient. I have also personally directed, reviewed, and agree with the discharge instructions and disposition. Disposition - Clinical Impression Clinical Impression: Back pain, UTI (urinary tract infection), Abscess - Patient ED Disposition Is Patient to be Admitted: No - Disposition Referrals: [facility] [Outside] Han Tarango MD [Family Provider] - Disposition Time: 18:00 Condition: IMPROVED Additional Instructions: FOLLOW UP WITH DR. TARANGO IN 2 DAYS FOR FURTHER EVALUATION RETURN TO ED IMMEDIATELY IF SYMPTOMS WORSEN DANNY MEDELLIN, thank you for letting us take care of you today. Your provider was Juan José Pabon III, DO and you were treated for BACK PAIN/BLISTER ON GLUTEUS. The emergency medical care you received today was directed at your acute symptoms. If you were prescribed any medication, please fill it and take as directed. It may take several days for your symptoms to resolve. Return to the Emergency Department if your symptoms worsen, do not improve, or if you have any other problems. Please contact your doctor or call one of the physicians/clinics you have been referred to that are listed on the Patient Visit Information form that is included in your discharge packet. Bring any paperwork you were given at discharge with you along with any medications you are taking to your follow up visit. Our treatment cannot replace ongoing medical care by a primary care marki shivani outside of the emergency department. Thank you for allowing the [facility] team to be part of your care today. If you had an X-Ray or CT scan: A Radiologist will review the ED reading if any change in treatment is needed we will contact you. If you had a blood, urine, or wound culture: It will take several days for the results, if any change in treatment is needed we will contact you. If you had an STI test: It will take 48 hours for the results. Please call after 1 week if you have not heard back. Prescriptions: Cyclobenzaprine [Cyclobenzaprine HCl] 10 mg PO Q8 PRN #10 tab PRN Reason: Muscle Spasm RX: Naproxen [Naprosyn] 500 mg PO BID PRN #10 tab PRN Reason: Pain Sulfamethoxazole/Trimethoprim [Bactrim DS 800 mg-160 mg] 2 tab PO BID #28 tab Instructions: Low Back Pain (DC), Urinary Tract Infection, Adult (DC), Boil (DC) Forms: [employer] (Kosovan) Print Language: BULGARIAN
[2018-10-16 18:04] LABS: SQUAMOUS EPITHIAL 1 /hpf (0-5); URINE BACTERIA FEW (<OCC); URINE BILIRUBIN NEGATIVE (NEGATIVE); URINE BLOOD NEGATIVE (NEGATIVE); URINE CLARITY CLOUDY (Clear); URINE COLOR YELLOW (YELLOW); URINE GLUCOSE (UA) NEG (NEGATIVE); URINE LEUKOCYTE ESTERASE NEG Leu/uL (Negative); URINE PROTEIN NEGATIVE (NEGATIVE); URINE UROBILINOGEN 0.2-1.0 mg/dL (0.2-1.0)
== END 2018-10-16 18:04 | disposition home or self-care (01) ==
LOC: H.ER 14:45
DX: M54.9 Dorsalgia, unspecified (principal); N39.0 Urinary tract infection, site not specified; L02.212 Cutaneous abscess of back [any part, except buttock and flank]; M51.36 Other intervertebral disc degeneration, lumbar region
CPT/HCPCS: 72070; 72100; 81003; 81025; 87086; 87181; 96372; 99282; G0480; J1885

== ENCOUNTER 2019-03-08 23:48 | Emergency (ER) | payer OTHER ==
[2019-03-08 23:49] VITALS: BMI 49.4
[2019-03-08 23:59] VITALS: RESP 18; TEMP 97.9
--- NOTE | 2019-03-09 03:02 | ED PDOC ---
HPI: Allergic Reaction Time Seen by Provider: 03/09/19 01:00 Chief Complaint (Nursing): Allergic Reaction Chief Complaint (Provider): ALLERGIC REACTION History Per: Patient History/Exam Limitations: no limitations Onset/Duration Of Symptoms: Days Current Symptoms Are (Timing): Still Present Possible Cause: Food Associated Symptoms: Skin Rash, Itching, Redness Home/EMS Treatment: None Severity: Mild Additional History Per: Patient Additional Complaint(s): 48 Y/O FEMALE WITH NO SIGNIFICANT MEDICAL HISTORY PRESENTS TO THE ED ITCHINESS TO BILAT ARMS AND FACE WITH ASSOCIATED RASH TO BILAT ARMS. PATIENT STATES THIS STARTED YESTERDAY AFTER EATING SHRIMPS. PATIENT STATES SHE USUALLY GETS ITCHY WHEN SHE EATS SHRIMP BUT USUALLY SUBSIDES ON ITS OWN. 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 ITCHINESS HAS NOT IMPROVED WITH PROMPTED ED VISIT. PATIENT DENIES CHEST PAIN, SOB, WHEEZING, FEVER. Past Medical History Reviewed: Historical Data, Nursing Documentation, Vital Signs Vital Signs: Last Vital Signs Temp 97.9 F 03/08/19 23:55 Pulse 80 03/08/19 23:55 Resp 18 03/08/19 23:55 BP 111/56 L 03/08/19 23:55 Pulse Ox 97 03/08/19 23:55 BETHANY Report Viewed: No - Medical History PMH: Anxiety, Asthma, Bronchitis, Depression, Gastritis Denies: Chronic Kidney Disease - Surgical History Surgical History: Endoscopy, Hernia Repair (ventral and inguinal x2), (x3) - Family History Family History: States: Unknown Family Hx, Hypertension - Living Arrangements Living Arrangements: With Family - Social History Alcohol: None Drugs: Denies - Home Medications Home Medications: Ambulatory Orders Medication Instructions Recorded Loratadine 10 mg PO DAILY 10/21/15 hydrOXYzine HCl [Atarax] 25 mg PO HS 12/09/15 Escitalopram [Lexapro] 1 tab PO DAILY 04/22/17 Dicyclomine [Bentyl] 20 mg PO TID PRN #15 tab 07/30/18 Cyclobenzaprine [Cyclobenzaprine 10 mg PO Q8 PRN #10 tab 10/16/18 HCl] Naproxen [Naprosyn] 500 mg PO BID PRN #10 tab 10/16/18 Sulfamethoxazole/Trimethoprim 2 tab PO BID #28 tab 10/16/18 [Bactrim DS 800 mg-160 mg] DiphenhydrAMINE [Benadryl] 50 mg PO Q6H PRN #30 cap 03/09/19 Famotidine [Pepcid] 20 mg PO DAILY #4 tab 03/09/19 Prednisone 50 mg PO DAILY #4 tablet 03/09/19 - Allergies Allergies/Adverse Reactions: Allergies Allergy/AdvReac Type Severity Reaction Status Date / Time iodine Allergy RASH Verified 10/16/18 15:15 shellfish derived Allergy RASH Verified 10/16/18 15:15 weed pollen Allergy ITCHING Verified 03/08/19 23:55 dust Allergy ITCHING Uncoded 03/08/19 23:55 Review of Systems ROS Statement: Except As Marked, All Systems Reviewed And Found Negative Constitutional: Negative for: Fever, Chills, Sweats, Weakness, Malaise Eyes: Negative for: Pain, Vision Change Skin: Positive for: Rash Physical Exam - Reviewed Nursing Documentation Reviewed: Yes Vital Signs Reviewed: Yes - Physical Exam Appears: Positive for: Well, Non-toxic, No Acute Distress Head Exam: Positive for: ATRAUMATIC, NORMAL INSPECTION, NORMOCEPHALIC Skin: Positive for: Normal Color, Warm, Rash (MILD PETECHIAL RASH TO BILAT ARMS, NEG FOR SWELLING ) Eye Exam: Positive for: EOMI, Normal appearance, PERRL ENT: Positive for: Normal ENT Inspection, Pharynx Is (NEG FOR TONSILLAR SWELLING OR REDNESS ). Negative for: Pharyngeal Erythema, Tonsillar Exudate, Tonsillar Swelling Neck: Positive for: Normal, Painless ROM, Supple Cardiovascular/Chest: Positive for: Regular Rate, Rhythm Respiratory: Positive for: Normal Breath Sounds. Negative for: Decreased Breath Sounds, Accessory Muscle Use, Wheezing, Respiratory Distress Gastrointestinal/Abdominal: Positive for: Normal Exam, Soft Back: Positive for: Normal Inspection Extremity: Positive for: Normal ROM Neurological/Psych: Positive for: Awake, Alert, Normal Tone, Oriented - ECG O2 Sat by Pulse Oximetry: 97 - Progress ED Course And Treament: --PREDNISONE 50MG --BENADRYL 50MG PO --PEPCID 20MG PO 03:00: PATIENT IS SLEEPING, IN NO RESPIRATORY DISTRESS. PATIENT IS EASILY AROUSABLE, STATES SHE FEELS BETTER. PATIENT STABLE FOR D/C HOME. PATIENT TO CONTINUE BENADRYL, PEPCID AND PREDNISONE AT HOME. PATIENT GIVEN RETURN TO ED PRECAUTIONS. PATIENT STATES UNDERSTANDING AND AGREES WITH PLAN. 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 Disposition - Clinical Impression Clinical Impression: Allergic reaction - Patient ED Disposition Is Patient to be Admitted: No - Disposition Disposition: Routine/Home Disposition Time: 03:00 Condition: IMPROVED Prescriptions: DiphenhydrAMINE [Benadryl] 50 mg PO Q6H PRN #30 cap PRN Reason: Itching / Pruritus Famotidine [Pepcid] 20 mg PO DAILY #4 tab Prednisone 50 mg PO DAILY #4 tablet Instructions: Drug Allergy, Allergy Skin Testing Print Language: FRISIAN - POA Present On Arrival: None
[2019-03-09 03:20] VITALS: BP 114/59; PULSE 74; O2SAT 98
== END 2019-03-09 04:03 | disposition home or self-care (01) ==
LOC: H.ER 23:48
DX: T78.40XA Allergy, unspecified, initial encounter (principal); J45.909 Unspecified asthma, uncomplicated; Z86.59 Personal history of other mental and behavioral disorders

== ENCOUNTER 2019-04-01 14:24 | Emergency (ER) | payer OTHER, MEDICAID ==
[2019-04-01 14:24] VITALS: BMI 49.4
[2019-04-01 14:26] VITALS: PULSE 76; O2SAT 99
[2019-04-01] MEDS ORDERED: Sodium Chloride 0.9% 500 ML IV STA (14:45)
[2019-04-01 15:22] LABS: BASO # 0.1 K/uL (0.0-0.2); BASO % 0.9 % (0.0-2.0); EOS # 0.2 K/uL (0.0-0.7); EOS % 2.4 % (0.0-4.0); HEMOGLOBIN 12.8 g/dL (12.0-16.0); LYMPH % 26.2 % (20.0-40.0); MEAN CELL VOLUME 79.5 fl (81.0-99.0); MEAN CORPUSCULAR HEMOGLOBIN 26.5 pg (27.0-31.0); MEAN CORPUSCULAR HGB CONC 33.3 g/dL (33.0-37.0); MEAN PLATELET VOLUME 8.3 fl (7.2-11.7); MONO # 0.7 K/uL (0.0-0.8); MONO % 8.7 % (0.0-10.0); NEUT # 4.8 K/uL (1.8-7.0); NEUT % 61.8 % (50.0-75.0); NRBC % 0.1 % (0.0-0.0); RBC 4.83 Mil/uL (3.80-5.20); RED CELL DISTRIBUTION WIDTH 13.8 % (11.5-14.5); WHITE BLOOD COUNT 7.8 K/uL (4.8-10.8)
--- NOTE | 2019-04-01 15:26 | ED PDOC ---
HPI: Headache Time Seen by Provider: 04/01/19 14:31 Chief Complaint (Nursing): Headache Chief Complaint (Provider): Headache History Per: Patient History/Exam Limitations: no limitations Onset/Duration Of Symptoms: Hrs (since 1000 this morning), Gradual Current Symptoms Are (Timing): Still Present (but slightly improved) Additional Complaint(s): 48 year old female with pmhx including depression, anxiety, and gastritis presents to the ED for evaluation of a gradual onset headache beginning around 1000 this morning s/p doing several stressful errands. Initially, she notes it was 8/10 pain and the worst headache of her life, but has since improved to a 6- 7/10 now without any medication. She reports chronic photophobia as well from her glaucoma, but says it is no worse with the headache. Otherwise, denies visual changes, gait imbalance, speech disturbances, weakness, fever, chills, nausea, and vomiting. Additionally denies history of migraines. Past Medical History Reviewed: Historical Data, Nursing Documentation, Vital Signs Vital Signs: Last Vital Signs Temp 97.9 F 04/01/19 14:26 Pulse 76 04/01/19 14:26 Resp 18 04/01/19 14:26 BP 126/60 04/01/19 14:26 Pulse Ox 99 04/01/19 14:26 Primary Care Provider: FAMILY PROVIDER,NO - Medical History PMH: Anxiety, Asthma, Bronchitis, Depression, Gastritis Denies: Chronic Kidney Disease - Surgical History Surgical History: Endoscopy, Hernia Repair (ventral and inguinal x2), (x3) Other surgeries: tubal ligation x5 years ago - Family History Family History: States: Hypertension - Social History Current smoker - smoking cessation education provided: Yes Alcohol: None Drugs: Denies - Home Medications Home Medications: Ambulatory Orders Medication Instructions Recorded RX: Loratadine 10 mg PO DAILY 10/21/15 RX: hydrOXYzine HCl [Atarax] 25 mg PO HS 12/09/15 RX: Escitalopram [Lexapro] 1 tab PO DAILY 04/22/17 Dicyclomine [Bentyl] 20 mg PO TID PRN #15 tab 07/30/18 Cyclobenzaprine [Cyclobenzaprine 10 mg PO Q8 PRN #10 tab 10/16/18 HCl] RX: Naproxen [Naprosyn] 500 mg PO BID PRN #10 tab 10/16/18 Sulfamethoxazole/Trimethoprim 2 tab PO BID #28 tab 10/16/18 [Bactrim DS 800 mg-160 mg] DiphenhydrAMINE [Benadryl] 50 mg PO Q6H PRN #30 cap 03/09/19 Famotidine [Pepcid] 20 mg PO DAILY #4 tab 03/09/19 RX: Prednisone 50 mg PO DAILY #4 tablet 03/09/19 RX: Ibuprofen [Motrin Tab] 600 mg PO Q6 PRN 7 Days tab 04/01/19 - Allergies Allergies/Adverse Reactions: Allergies Allergy/AdvReac Type Severity Reaction Status Date / Time iodine Allergy RASH Verified 04/01/19 14:29 shellfish derived Allergy RASH Verified 04/01/19 14:29 weed pollen Allergy ITCHING Verified 04/01/19 14:29 dust Allergy ITCHING Uncoded 04/01/19 14:29 Review of Systems ROS Statement: Except As Marked, All Systems Reviewed And Found Negative Constitutional: Negative for: Fever, Chills Eyes: Negative for: Vision Change ENT: Positive for: Other (photophobia unchanged from baseline) Gastrointestinal: Negative for: Nausea, Vomiting Neurological: Positive for: Headache (-05/21 ). Negative for: Weakness, Incoordination, Change in Speech Physical Exam - Reviewed Nursing Documentation Reviewed: Yes Vital Signs Reviewed: Yes - Physical Exam Appears: Positive for: No Acute Distress Head Exam: Positive for: ATRAUMATIC, NORMAL INSPECTION, NORMOCEPHALIC Eye Exam: Positive for: Normal appearance, EOMI, PERRL Cardiovascular/Chest: Positive for: Regular Rate, Rhythm Respiratory: Positive for: Normal Breath Sounds. 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 Negative for: Motor/Sensory Deficits (light touch intact to face, torso, and bilateral lower extremities) - Laboratory Results Result Diagrams: 04/01/19 15:15 04/01/19 15:15 - ECG O2 Sat by Pulse Oximetry: 99 (RA) Pulse Ox Interpretation: Normal Medical Decision Making Medical Decision Making: Time: 1445 Initial Impression: headache, r/o intracranial etiology Initial Plan: --CT head without contrast --BMP --CBC with differential --Normal saline IV --Toradol 30mg IVP --Reevaluation 1615 CT FINDINGS: HEMORRHAGE: No intracranial hemorrhage. BRAIN: No mass effect or edema. No atrophy or chronic microvascular ischemic changes. VENTRICLES: Unremarkable. No hydrocephalus. CALVARIUM: Unremarkable. PARANASAL SINUSES: Unremarkable as visualized. No significant inflammatory changes. MASTOID AIR CELLS: Unremarkable as visualized. No inflammatory changes. OTHER FINDINGS: None. IMPRESSION: No acute intracranial findings 170 Patient reports significant improvement in symptoms, stable for discharge home. Return parameters discussed and all questions answered. ------- Scribe Attestation: Documented by Jena Curtis, acting as a scribe for Alma Rosa Parra PA-C. Provider Scribe Attestation: All medical record entries made by the Scribe were at my direction and personally dictated by me. I have reviewed the chart and agree that the record accurately reflects my personal performance of the history, physical exam, medical decision making, and the department course for this patient. I have also personally directed, reviewed, and agree with the discharge instructions and disposition. Disposition - Clinical Impression Clinical Impression: Acute headache - Disposition Referrals: Tamir Lovell MD [Staff Provider] - Disposition Time: 17:06 Condition: IMPROVED Additional Instructions: Follow up with your primary care doctor if your HAs happen more frequently. Take Ibuprofen or Tylenol for pain. Stay well hydrated. Return to ER if your symptoms worsen. Prescriptions: RX: Ibuprofen [Motrin Tab] 600 mg PO Q6 PRN 7 Days tab PRN Reason: Headache Instructions: Headache, Adult (DC), Acute Headache (ED) Forms: [employer] (Danish) Print Language: ANGUILLAN
[2019-04-01 15:27] LABS: BLOOD UREA NITROGEN 20 mg/dl (7-17); CALCIUM 9.4 mg/dL (8.4-10.2); GFR NON-AFRICAN AMERICAN > 60
--- NOTE | 2019-04-01 16:19 | CT ---
Date of service: 04/01/2019 PROCEDURE: CT HEAD WITHOUT CONTRAST. HISTORY: persistent severe KEARNS COMPARISON: None available. TECHNIQUE: Axial computed tomography images were obtained through the head/brain without intravenous contrast. Radiation dose: Total exam DLP = 834.06 mGy-cm. This CT exam was performed using one or more of the following dose reduction techniques: Automated exposure control, adjustment of the mA and/or kV according to patient size, and/or use of iterative reconstruction technique. FINDINGS: HEMORRHAGE: No intracranial hemorrhage. BRAIN: No mass effect or edema. No atrophy or chronic microvascular ischemic changes. VENTRICLES: Unremarkable. No hydrocephalus. CALVARIUM: Unremarkable. PARANASAL SINUSES: Unremarkable as visualized. No significant inflammatory changes. MASTOID AIR CELLS: Unremarkable as visualized. No inflammatory changes. OTHER FINDINGS: None. IMPRESSION: No acute intracranial findings
[2019-04-01 17:10] VITALS: BP 128/74; RESP 16; TEMP 98
== END 2019-04-01 17:11 | disposition home or self-care (01) ==
LOC: H.ER 14:24
DX: R51 Headache (principal)
CPT/HCPCS: 70450; 80048; 85025; 96361; 96374; 99283; J1885; J7040